=== PATIENT | male | born 1965 | race Caucasian/White ===

== ENCOUNTER 2018-12-02 16:08 | Inpatient (IN) | payer MEDICARE ==
[~2018-12-02] VITALS: Ht 162.6 cm; Wt 123.9 kg
[2018-12-02] MEDS ORDERED: IV NORMAL SALINE 1000ML BAG 1,000 ML IV SCH (16:27)
[2018-12-02 16:38] LABS: BASO # 0.1 x10^3/uL (0.0-0.2); BASO % 1 % (0-3); EOS # 0.3 x10^3/uL (0.0-0.7); EOS % 3 % (0-3); HEMATOCRIT 34.6 % (39.0-53.0); LYMPH # 1.5 x10^3/uL (1.0-4.8); LYMPH % 17 % (24-48); MEAN CORPUSCULAR HEMOGLOBIN 30 pg (25-35); MEAN CORPUSCULAR HGB CONC 35 g/dL (31-37); MEAN CORPUSCULAR VOLUME 85 fL (79-100); MONO # 0.7 x10^3/uL (0.0-1.1); MONO % 9 % (0-9); NEUT % 70 % (31-73); PLATELET COUNT 167 x10^3/uL (140-400); RED BLOOD COUNT 4.05 x10^6/uL (4.30-5.70); RED CELL DISTRIBUTION WIDTH 13.3 % (11.5-14.5); WHITE BLOOD COUNT 8.5 x10^3/uL (4.0-11.0)
[2018-12-02 16:46] LABS: CALCIUM 8.8 mg/dL (8.5-10.1); CREATININE 1.8 mg/dL (0.7-1.3); POTASSIUM 4.8 mmol/L (3.5-5.1)
[2018-12-02 16:50] LABS: PROTHROMBIN TIME PATIENT 11.8 SEC (11.7-14.0)
[2018-12-02 16:53] LABS: ALBUMIN 3.9 g/dL (3.4-5.0); ALBUMIN/GLOBULIN RATIO 1.1 (1.0-1.7); TOTAL BILIRUBIN 0.7 mg/dL (0.2-1.0); TOTAL PROTEIN 7.6 g/dL (6.4-8.2)
--- NOTE | 2018-12-02 17:00 | RAD ---
PORTABLE CHEST 1V History: Chest pain Comparison: None. Findings: Low lung volumes. Portal technique accentuates cardiac size. No consolidation or pleural effusion. Right lateral pleural thickening. Impression: 1. Low lung volumes. Electronically signed by: Faustino Chua DO (12/02/2018 4:57 PM) [facility]
--- NOTE | 2018-12-02 17:55 | PHYS DOC ---
Past Medical History Past Medical History: Anxiety, Depression, Diabetes-Type II, Hypertension, Other Additional Past Medical Histor: 'legally blind', compressed vert, LE swelling, neuropathy (SYL CHAWLA MD) Past Surgical History: Other Additional Past Surgical Histo: cataract,laser eye,blood drained from L eye, cyst removed (SYL CHAWLA MD) Alcohol Use: None Drug Use: None (SYL CHAWLA MD) Adult General Chief Complaint Chief Complaint: SUICDAL IDEATION HPI HPI Patient is a 53 year old male who presents by EMS with complaining of suicidal patient and chest pain and shortness of breath. Patient states he was suicidal and mixed ammonia and bleach at 0100 today drinking to himself this morning of solution made him nauseous and shortness of breath. Patient complaining of constant substernal chest pain as an sharp pain without radiation and rated his pain 9/10. Patient also complaining of cough and shortness of breath and dry cough. Patient states he had more than 20 episodes of vomiting but was able to tolerate his breakfast and lunch. Patient also complaining of not feeling good. Patient denies homicidal ideation and hallucination. Patient states he was admitted at [facility] with suicidal ideation previously. (SYL CHAWLA MD) Review of Systems Review of Systems Constitutional: Denies fever or chills [] Eyes: Denies change in visual acuity, redness, or eye pain [] HENT: Denies nasal congestion or sore throat [] Respiratory: Reports cough and shortness of breath Cardiovascular: No additional information not addressed in HPI [] GI: Denies abdominal pain, bloody stools or diarrhea, reports nausea and vomiting [] : Denies dysuria or hematuria [] Musculoskeletal: Denies back pain or joint pain [] Integument: Denies rash or skin lesions [] Neurologic: Denies headache, focal weakness or sensory changes [] Endocrine: Denies polyuria or polydipsia [] All other systems were reviewed and found to be within normal limits, except as documented in this note. (SYL CHAWLA MD) Current Medications Current Medications Current Medications Medications (Trade) Dose Ordered Sig/Jaspal Start Time Stop Time Status Last Admin Dose Admin Sodium Chloride 1,000 ml @ 1,000 mls/hr Q1H 12/02/18 16:27 12/02/18 17:26 DC 12/02/18 17:16 1,000 MLS/HR (HAILEY LEE MD) Allergies Allergies Allergies Coded Allergies Type Severity Reaction Last Updated Verified No Known Drug Allergies 12/02/18 No (HAILEY LEE MD) Physical Exam Physical Exam Constitutional: Well nourished, no acute distress, non-toxic appearance, patient looks very comfortable but rated his pain 9/10, patient does not have an y cough or shortness of breath. [] HENT: Normocephalic, atraumatic, bilateral external ears normal, oropharynx moist, no oral exudates, nose normal. [] Eyes: PERRLA, EOMI, conjunctiva normal, no discharge. [] Neck: Normal range of motion, no tenderness, supple, no stridor. [] Cardiovascular: Tachycardia, no murmur [] Lungs & Thorax: Bilateral breath sounds clear to auscultation [] Abdomen: Bowel sounds normal, soft, no tenderness, no masses, no pulsatile masses. [] Skin: Warm, dry, no erythema, no rash. [] Back: No tenderness, no CVA tenderness. [] Extremities: No tenderness, no cyanosis, no clubbing, ROM intact, no edema. [] Neurologic: Alert and oriented X 3, normal motor function, normal sensory function, no focal deficits noted. [] Psychologic: Affect anxious, suicidal ideation. (SYL CHAWLA MD) Current Patient Data Vital Signs Vital Signs Date Time Temp Pulse Resp B/P (MAP) Pulse Ox O2 Delivery O2 Flow Rate FiO2 12/02/18 17:30 100 23 192/91 (124) 97 Room Air 12/02/18 16:10 98.4 98.4 (HAILEY LEE MD) Lab Values Laboratory Tests Test 12/02/18 16:26 12/02/18 17:55 White Blood Count 8.5 x10^3/uL (4.0-11.0) Red Blood Count 4.05 x10^6/uL (4.30-5.70) L Hemoglobin 12.0 g/dL (13.0-17.5) L Hematocrit 34.6 % (39.0-53.0) L Mean Corpuscular Volume 85 fL (79-100) Mean Corpuscular Hemoglobin 30 pg (25-35) Mean Corpuscular Hemoglobin Concent 35 g/dL (31-37) Red Cell Distribution Width 13.3 % (11.5-14.5) Platelet Count 167 x10^3/uL (140-400) Neutrophils (%) (Auto) 70 % (31-73) Lymphocytes (%) (Auto) 17 % (24-48) L Monocytes (%) (Auto) 9 % (0-9) Eosinophils (%) (Auto) 3 % (0-3) Basophils (%) (Auto) 1 % (0-3) Neutrophils # (Auto) 6.0 x10^3/uL (1.8-7.7) Lymphocytes # (Auto) 1.5 x10^3/uL (1.0-4.8) Monocytes # (Auto) 0.7 x10^3/uL (0.0-1.1) Eosinophils # (Auto) 0.3 x10^3/uL (0.0-0.7) Basophils # (Auto) 0.1 x10^3/uL (0.0-0.2) Prothrombin Time 11.8 SEC (11.7-14.0) Prothrombin Time INR 0.9 (0.8-1.1) Sodium Level 141 mmol/L (136-145) Potassium Level 4.8 mmol/L (3.5-5.1) Chloride Level 103 mmol/L (98-107) Carbon Dioxide Level 28 mmol/L (21-32) Anion Gap 10 (6-14) Blood Urea Nitrogen 38 mg/dL (8-26) H Creatinine 1.8 mg/dL (0.7-1.3) H Estimated GFR (Cockcroft-Gault) 40.0 BUN/Creatinine Ratio 21 (6-20) H Glucose Level 293 mg/dL (70-99) H Calcium Level 8.8 mg/dL (8.5-10.1) Total Bilirubin 0.7 mg/dL (0.2-1.0) Aspartate Amino Transferase (AST) 14 U/L (15-37) L Alanine Aminotransferase (ALT) 16 U/L (16-63) Alkaline Phosphatase 90 U/L (46-116) Creatine Kinase 103 U/L (39-308) Troponin I Quantitative < 0.017 ng/mL (0.000-0.055) PY-Ofi-O-Type Natriuretic Peptide 125 pg/mL (0-124) H Total Protein 7.6 g/dL (6.4-8.2) Albumin 3.9 g/dL (3.4-5.0) Albumin/Globulin Ratio 1.1 (1.0-1.7) Ethyl Alcohol Level < 10 mg/dL (0-10) Urine Collection Type Unknown Urine Color Yellow Urine Clarity Clear Urine pH 5.5 Urine Specific [place] 1.020 Urine Protein 100 mg/dL (NEG-TRACE) Urine Glucose (UA) 250 mg/dL (NEG) Urine Ketones (Stick) Negative mg/dL (NEG) Urine Blood Moderate (NEG) Urine Nitrite Negative (NEG) Urine Bilirubin Negative (NEG) Urine Urobilinogen Dipstick 1.0 mg/dL (0.2 mg/dL) Urine Leukocyte Esterase Negative (NEG) Urine RBC 6-10 /HPF (0-2) Urine WBC Rare /HPF (0-4) Urine Bacteria 0 /HPF (0-FEW) Urine Hyaline Casts Few /HPF Urine Mucus Slight /LPF Urine Opiates Screen Neg (NEG) Urine Methadone Screen Neg (NEG) Urine Barbiturates Neg (NEG) Urine Phencyclidine Screen Neg (NEG) Urine Amphetamine/Methamphetamine Neg (NEG) Urine Benzodiazepines Screen Neg (NEG) Urine Cocaine Screen Neg (NEG) Urine Cannabinoids Screen Neg (NEG) Urine Ethyl Alcohol Neg (NEG) Laboratory Tests 12/02/18 16:26 Laboratory Tests 12/02/18 16:26 (HAILEY LEE MD) EKG EKG EKG interpreted by me. EKG at 1612 showed sinus tachycardia at rate of 111, left hernandez axis, poor R-wave progress in anteroseptal leads, no acute ST and T-wave abnormalities. (SYL CHAWLA MD) Radiology/Procedures Radiology/Procedures [][facility] [address] [place], [place] [id number] IMAGING REPORT Signed PATIENT: BERNABE GILL ACCOUNT: [id number] : 1965 LOCATION: ER AGE: 53 SEX: M EXAM STATUS: PRE ER ORD. PHYSICIAN: SYL CHAWLA MD REASON: chest pain PROCEDURE: PORTABLE CHEST 1V PORTABLE CHEST 1V History: Chest pain Comparison: None. Findings: Low lung volumes. Portal technique accentuates cardiac size. No consolidation or pleural effusion. Right lateral pleural thickening. Impression: 1. Low lung volumes. Electronically signed by: Faustino Chua DO (12/02/2018 4:57 PM) [facility] DICTATED and SIGNED BY: FAUSTINO CHUA DO DATE: 12/02/18 523 (SYL CHAWLA MD) Course & Med Decision Making Course & Med Decision Making Pertinent Labs and Imaging studies reviewed. (See chart for details) Evaluation of patient in ER showed 53-year-old male patient with history of d epression and anxiety who developed chest pain and shortness of breath after smelling the mixture of ammonia and bleach. Patient was very comfortable in ER without shortness of breath or nausea and vomiting but complaining of all of this problem. Patient had stable vital signs and labs except for elevation of blood sugar and chronic renal insufficiency. UA and UDS is pending. Patient was evaluated by PAT team staff and had criteria for inpatient treatment for suicidal ideation. Patient was medically cleared for transfer to psychiatric unit. Waiting for psychiatric placement. Sign out given to at 1800 for further evaluation and final disposition. Discussed current findings and plan with patient and family, who acknowledge understanding and agreement. (SYL CHAWLA MD) Course & Med Decision Making I spoke with Marco A from the PAT team [facility] recently only accepting psychiatric facility and they wanted him to be admitted for blood pressure and blood sugar stabilization. We'll admit to Dr. Brooks (HAILEY LEE MD) Joon Disclaimer Dragon Disclaimer This electronic medical record was generated, in whole or in part, using a voice recognition dictation system. (SYL CHAWLA MD) Departure Departure Impression: Primary Impression: Suicidal ideation Additional Impressions: Anxiety about health Non-cardiac chest pain Uncontrolled diabetes mellitus Renal insufficiency Legally blind Disposition: ADMITTED INPATIENT Admitting Physician: SG (HAILEY LEE MD) Condition: STABLE Referrals: NO PCP (PCP) The HEART Score for CP Pts HEART Score for Chest Pain: HEART Score for Chest Pain Response (Comments) Value History Slighlty/Non-Suspicious 0 ECG Nonspecific Repolarizatio 1 Age >45 - < 65 1 Risk Factors >3 Risk Factors or Hx CAD 2 Troponin < Normal Limit 0 Total 4 Risk Factors: Risk Factors: DM, Current or recent (<one month) smoker, HTN, HLP, family history of CAD, obesity. Risk Scores: Score 0 - 3: 2.5% MACE over next 6 weeks - Discharge Home Score 4 - 6: 20.3% MACE over next 6 weeks - Admit for Clinical Observation Score 7 - 10: 72.7% MACE over next 6 weeks - Early Invasive Strategies (SYL CHAWLA MD) Problem Qualifiers Additional Impressions: Uncontrolled diabetes mellitus Diabetes mellitus type: other specified (including MARIXA) Glycemic state: with hyperglycemia Qualified Codes: E13.65 - Other specified diabetes mellitus with hyperglycemia SYL CHAWLA MD Dec 02, 2018 17:55 HAILEY LEE MD Dec 02, 2018 19:43
[2018-12-02 18:05] LABS: BILIRUBIN,URINE NEGATIVE (NEG); CLARITY,URINE CLEAR; COLOR,URINE YELLOW; NITRITE,URINE NEGATIVE (NEG); PH,URINE 5.5; PROTEIN,URINE 100 mg/dL (NEG-TRACE)
[2018-12-02 18:12] LABS: BARBITURATES NEG (NEG); BENZODIAZEPINES NEG (NEG); CANNABINOIDS NEG (NEG); COCAINE NEG (NEG); METHADONE NEG (NEG); OPIATES NEG (NEG); PHENCYCLIDINE NEG (NEG)
[2018-12-02 18:16] LABS: BACTERIA,URINE 0 /HPF (0-FEW); WBC,URINE RARE /HPF (0-4)
[2018-12-02 18:17] LABS: HYALINE CASTS, URINE FEW /HPF
[2018-12-02 18:20] LABS: AMPHETAMINE/METHAMPHETAMINE NEG (NEG)
[2018-12-02] MEDS ORDERED: amLODIPine BESYLATE 5 MG TABLET PO ONE (20:00)
[2018-12-02 21:07] VITALS: BP 167/84
[2018-12-02] MEDS ORDERED: INSU100I27 SQ (21:15)
[2018-12-02] MEDS ORDERED: INSU100I17 SQ (21:15)
[2018-12-02] MEDS ORDERED: AMLO2.5T5 PO (21:15)
--- NOTE | 2018-12-02 22:50 | NUR ---
The patient, BERNABE GILL, 53 y/o, M admitted by KRISTAL VILLALBA MD, was given written information regarding hospital policies, unit procedures and contact persons. Patient arrived to room via ED bed, assisted by ED staff member. Valuables were checked, noted, and placed in the medication room. Clock, trash cans, and plastic bags were removed from the patient's room. Patient was given a boxed lunch and ice water per request. Patient states no other needs at this time. This RN will continue to monitor the patient at this time.
[2018-12-02 23:00] VITALS: BP 154/84
[2018-12-03 02:56] VITALS: BP 164/91
[2018-12-03 07:02] VITALS: BP 183/100
[2018-12-03 08:33] LABS: CALCIUM 8.6 mg/dL (8.5-10.1); CREATININE 1.2 mg/dL (0.7-1.3); GFR 63.8; POTASSIUM 4.6 mmol/L (3.5-5.1)
--- NOTE | 2018-12-03 10:56 | PDOC1 ---
History and Physical Date of Admission Date of Admission DATE: 12/03/18 TIME: 10:55 Identification/Chief Complaint Chief Complaint SEEN IN ER 53-year-old male patient with history of depression and anxiety who developed chest pain and shortness of breath after smelling a mixture of ammonia and bleach in an effort to harm himself 12/02 complaining of cough and shortness of breath and dry cough. states he had more than 20 episodes of vomiting but was able to tolerate his breakfast and lunch. Patient also complaining of not feeling well. denies homicidal ideation and hallucination. Patient states he was admitted at [facility] with suicidal ideation previously. States that life seems hopeless, he cannot drive or work due to blindness, his family has forsaken him x 5 yrs, He apparently had a hx of intentional overdose with insulin in 2017. He notes severe dysphoria, finds no pleasure in life, and" wishes to end it all "., has little or no money to spend, does not qualify for food stamps HAS 2 years of college education in [place], but no degree. 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 due to vision loss, is followed [facility] Past Medical History Past Medical History Past Medical History Past Medical History Past Medical History: Anxiety, Depression, Diabetes-Type II, Hypertension, Other Additional Past Medical Histor: 'legally blind', compressed vert, LE swelling, neuropathy Past Surgical History: Other Additional Past Surgical Histo: cataract,laser eye,blood drained from L eye, cyst removed Alcohol Use: None Drug Use: None Psych: Anxiety, Depression Endocrine: Diabetes Past Surgical History Past Surgical History: No pertinent history Family History Family History: High Cholestrol, Hypertension Family History: Parent, Other (father age 59 from [place]) Social History Smoke: No ALCOHOL: none Drugs: None Current Problem List Problem List Problems Medical Problems: (1) Anxiety about health Status: Acute (2) Legally blind Status: Acute (3) Non-cardiac chest pain Status: Acute (4) Renal insufficiency Status: Acute (5) Suicidal ideation Status: Acute (6) Uncontrolled diabetes mellitus Status: Acute Current Medications Current Medications Current Medications Sodium Chloride 1,000 ml @ 1,000 mls/hr Q1H IV Last administered on 12/02/18at 17:16; Start 12/02/18 at 16:27; Stop 12/02/18 at 17:26; Status DC Amlodipine Besylate (Norvasc) 5 mg 1X ONCE PO Last administered on 12/02/18at 20:04; Start 12/02/18 at 20:00; Stop 12/02/18 at 20:01; Status DC Active Scripts Active Reported Amlodipine Besylate 2.5 Mg Tablet 2.5 Mg PO DAILY Novolog Flexpen (Insulin Aspart) 100 Unit/1 Ml Insuln.pen 15 Unit SQ TIDAC Levemir Flextouch (Insulin Detemir) 100 Unit/1 Ml Insuln.pen 40 Unit SQ BID Allergies Allergies: Coded Allergies: No Known Drug Allergies (Unverified , 12/02/18) ROS Review of System Review of Systems Review of Systems Constitutional: Denies fever or chills [] Eyes: Denies change in visual acuity, redness, or eye pain [] HENT: Denies nasal congestion or sore throat [] Respiratory: Reports cough and shortness of breath Cardiovascular: No additional information not addressed in HPI [] GI: Denies abdominal pain, bloody stools or diarrhea, reports nausea and vomiting [] : Denies dysuria or hematuria [] Musculoskeletal: Denies back pain or joint pain [] Integument: Denies rash or skin lesions [] Neurologic: Denies headache, focal weakness or sensory changes [] Endocrine: Denies polyuria or polydipsia [] 14 pt systems were reviewed and found to be within normal limits, except as documented General: YES: Fatigue PSYCHOLOGICAL ROS: YES: Depression Eyes: Yes Decreased vision, Yes Loss of vision ALLERGY AND IMMUNOLOGY: No: Hives, Insect Bite Sensitivity, Itchy/Watery Eyes, Nasal Congestion, Post Nasal Drip, Seasonal Allergies, Other Hematological and Lymphatic: No: Bleeding Problems, Blood Clots, Blood Transfusions, Brusing, Night Sweats, Pallor, Swollen Lymph Nodes, Other Respiratory: YES: Cough; No: Hemoptysis, Orthopnea, Pleuritic Pain, Shortness of breath, SOB with excertion, Sputum Changes, Stridor, Tachypnea, Wheezing, Other Cardiovascular: yes Chest Pain Gastrointestinal: No Nausea, No Vomiting, No Abdominal Pain, No Diarrhea, No Constipation, No Melena, No Hematochezia, No Other Musculoskeletal: Yes Muscular Weakness Neurological: Yes Gait Disturbance Physical Exam Physical Exam Physical Exam Physical Exam Constitutional: Well nourished, no acute distress, non-toxic appearance, patient looks very comfortable but rated his pain 9/10, patient does not have any cough or shortness of breath. [] HENT: Normocephalic, atraumatic, bilateral external ears normal, oropharynx moist, no oral exudates, nose normal. [] Eyes: PERRLA, EOMI, conjunctiva normal, no discharge. [] Neck: Normal range of motion, no tenderness, supple, no stridor. [] Cardiovascular: Tachycardia, no murmur [] Lungs & Thorax: Bilateral breath sounds clear to auscultation [] Abdomen: Bowel sounds normal, soft, no tenderness, no masses, no pulsatile masses. [] Skin: Warm, dry, no erythema, no rash. [] Back: No tenderness, no CVA tenderness. [] Extremities: No tenderness, no cyanosis, no clubbing, ROM intact, no edema. [] Neurologic: Alert and oriented X 3, normal motor function, normal sensory function, no focal deficits noted. [] Psychologic: Affect anxious, suicidal ideation. DEPRESSED AFFECT General: Alert, Oriented X3, Cooperative, No acute distress, mild distress HEENT: Atraumatic, EOMI, Mucous membr. moist/pink Lungs: Clear to auscultation, Normal air movement Heart: RRR Abdomen: Normal bowel sounds, Soft Rectal Exam: not examined PELVIC: Examination not indicated Extremities: No cyanosis Skin: No breakdown, No significant lesion Neuro: Normal speech, Cranial nerves 3-12 NL Psych/Mental Status: Other (DEPRESSED AFFECT) Vitals Vitals Vital Signs Date Time Temp Pulse Resp B/P (MAP) Pulse Ox O2 Delivery O2 Flow Rate FiO2 12/03/18 07:02 98.4 94 18 183/100 (127) 98 Room Air 98.4 Labs Labs Laboratory Tests Test 12/02/18 16:26 12/02/18 17:55 12/02/18 20:33 12/03/18 07:07 White Blood Count 8.5 x10^3/uL (4.0-11.0) Red Blood Count 4.05 x10^6/uL (4.30-5.70) Hemoglobin 12.0 g/dL (13.0-17.5) Hematocrit 34.6 % (39.0-53.0) Mean Corpuscular Volume 85 fL (79-100) Mean Corpuscular Hemoglobin 30 pg (25-35) Mean Corpuscular Hemoglobin Concent 35 g/dL (31-37) Red Cell Distribution Width 13.3 % (11.5-14.5) Platelet Count 167 x10^3/uL (140-400) Neutrophils (%) (Auto) 70 % (31-73) Lymphocytes (%) (Auto) 17 % (24-48) Monocytes (%) (Auto) 9 % (0-9) Eosinophils (%) (Auto) 3 % (0-3) Basophils (%) (Auto) 1 % (0-3) Neutrophils # (Auto) 6.0 x10^3/uL (1.8-7.7) Lymphocytes # (Auto) 1.5 x10^3/uL (1.0-4.8) Monocytes # (Auto) 0.7 x10^3/uL (0.0-1.1) Eosinophils # (Auto) 0.3 x10^3/uL (0.0-0.7) Basophils # (Auto) 0.1 x10^3/uL (0.0-0.2) Prothrombin Time 11.8 SEC (11.7-14.0) Prothromb Time International Ratio 0.9 (0.8-1.1) Sodium Level 141 mmol/L (136-145) Potassium Level 4.8 mmol/L (3.5-5.1) Chloride Level 103 mmol/L (98-107) Carbon Dioxide Level 28 mmol/L (21-32) Anion Gap 10 (6-14) Blood Urea Nitrogen 38 mg/dL (8-26) Creatinine 1.8 mg/dL (0.7-1.3) Estimated GFR (Cockcroft-Gault) 40.0 BUN/Creatinine Ratio 21 (6-20) Glucose Level 293 mg/dL (70-99) Calcium Level 8.8 mg/dL (8.5-10.1) Total Bilirubin 0.7 mg/dL (0.2-1.0) Aspartate Amino Transf (AST/SGOT) 14 U/L (15-37) Alanine Aminotransferase (ALT/SGPT) 16 U/L (16-63) Alkaline Phosphatase 90 U/L (46-116) Creatine Kinase 103 U/L (39-308) Troponin I Quantitative < 0.017 ng/mL (0.000-0.055) MZ-Clw-W-Type Natriuretic Peptide 125 pg/mL (0-124) Total Protein 7.6 g/dL (6.4-8.2) Albumin 3.9 g/dL (3.4-5.0) Albumin/Globulin Ratio 1.1 (1.0-1.7) Ethyl Alcohol Level < 10 mg/dL (0-10) Urine Collection Type Unknown Urine Color Yellow Urine Clarity Clear Urine pH 5.5 Urine Specific [place] 1.020 Urine Protein 100 mg/dL (NEG-TRACE) Urine Glucose (UA) 250 mg/dL (NEG) Urine Ketones (Stick) Negative mg/dL (NEG) Urine Blood Moderate (NEG) Urine Nitrite Negative (NEG) Urine Bilirubin Negative (NEG) Urine Urobilinogen Dipstick 1.0 mg/dL (0.2 mg/dL) Urine Leukocyte Esterase Negative (NEG) Urine RBC 6-10 /HPF (0-2) Urine WBC Rare /HPF (0-4) Urine Bacteria 0 /HPF (0-FEW) Urine Hyaline Casts Few /HPF Urine Mucus Slight /LPF Urine Opiates Screen Neg (NEG) Urine Methadone Screen Neg (NEG) Urine Barbiturates Neg (NEG) Urine Phencyclidine Screen Neg (NEG) Urine Amphetamine/Methamphetamine Neg (NEG) Urine Benzodiazepines Screen Neg (NEG) Urine Cocaine Screen Neg (NEG) Urine Cannabinoids Screen Neg (NEG) Urine Ethyl Alcohol Neg (NEG) Glucose (Fingerstick) 221 mg/dL (70-99) 246 mg/dL (70-99) Test 12/03/18 07:45 Sodium Level 143 mmol/L (136-145) Potassium Level 4.6 mmol/L (3.5-5.1) Chloride Level 108 mmol/L (98-107) Carbon Dioxide Level 27 mmol/L (21-32) Anion Gap 8 (6-14) Blood Urea Nitrogen 29 mg/dL (8-26) Creatinine 1.2 mg/dL (0.7-1.3) Estimated GFR (Cockcroft-Gault) 63.8 Glucose Level 254 mg/dL (70-99) Calcium Level 8.6 mg/dL (8.5-10.1) Laboratory Tests Test 12/02/18 16:26 12/02/18 17:55 12/02/18 20:33 12/03/18 07:07 White Blood Count 8.5 x10^3/uL (4.0-11.0) Red Blood Count 4.05 x10^6/uL (4.30-5.70) Hemoglobin 12.0 g/dL (13.0-17.5) Hematocrit 34.6 % (39.0-53.0) Mean Corpuscular Volume 85 fL (79-100) Mean Corpuscular Hemoglobin 30 pg (25-35) Mean Corpuscular Hemoglobin Concent 35 g/dL (31-37) Red Cell Distribution Width 13.3 % (11.5-14.5) Platelet Count 167 x10^3/uL (140-400) Neutrophils (%) (Auto) 70 % (31-73) Lymphocytes (%) (Auto) 17 % (24-48) Monocytes (%) (Auto) 9 % (0-9) Eosinophils (%) (Auto) 3 % (0-3) Basophils (%) (Auto) 1 % (0-3) Neutrophils # (Auto) 6.0 x10^3/uL (1.8-7.7) Lymphocytes # (Auto) 1.5 x10^3/uL (1.0-4.8) Monocytes # (Auto) 0.7 x10^3/uL (0.0-1.1) Eosinophils # (Auto) 0.3 x10^3/uL (0.0-0.7) Basophils # (Auto) 0.1 x10^3/uL (0.0-0.2) Prothrombin Time 11.8 SEC (11.7-14.0) Prothromb Time International Ratio 0.9 (0.8-1.1) Sodium Level 141 mmol/L (136-145) Potassium Level 4.8 mmol/L (3.5-5.1) Chloride Level 103 mmol/L (98-107) Carbon Dioxide Level 28 mmol/L (21-32) Anion Gap 10 (6-14) Blood Urea Nitrogen 38 mg/dL (8-26) Creatinine 1.8 mg/dL (0.7-1.3) Estimated GFR (Cockcroft-Gault) 40.0 BUN/Creatinine Ratio 21 (6-20) Glucose Level 293 mg/dL (70-99) Calcium Level 8.8 mg/dL (8.5-10.1) Total Bilirubin 0.7 mg/dL (0.2-1.0) Aspartate Amino Transf (AST/SGOT) 14 U/L (15-37) Alanine Aminotransferase (ALT/SGPT) 16 U/L (16-63) Alkaline Phosphatase 90 U/L (46-116) Creatine Kinase 103 U/L (39-308) Troponin I Quantitative < 0.017 ng/mL (0.000-0.055) NB-Hpb-Y-Type Natriuretic Peptide 125 pg/mL (0-124) Total Protein 7.6 g/dL (6.4-8.2) Albumin 3.9 g/dL (3.4-5.0) Albumin/Globulin Ratio 1.1 (1.0-1.7) Ethyl Alcohol Level < 10 mg/dL (0-10) Urine Collection Type Unknown Urine Color Yellow Urine Clarity Clear Urine pH 5.5 Urine Specific [place] 1.020 Urine Protein 100 mg/dL (NEG-TRACE) Urine Glucose (UA) 250 mg/dL (NEG) Urine Ketones (Stick) Negative mg/dL (NEG) Urine Blood Moderate (NEG) Urine Nitrite Negative (NEG) Urine Bilirubin Negative (NEG) Urine Urobilinogen Dipstick 1.0 mg/dL (0.2 mg/dL) Urine Leukocyte Esterase Negative (NEG) Urine RBC 6-10 /HPF (0-2) Urine WBC Rare /HPF (0-4) Urine Bacteria 0 /HPF (0-FEW) Urine Hyaline Casts Few /HPF Urine Mucus Slight /LPF Urine Opiates Screen Neg (NEG) Urine Methadone Screen Neg (NEG) Urine Barbiturates Neg (NEG) Urine Phencyclidine Screen Neg (NEG) Urine Amphetamine/Methamphetamine Neg (NEG) Urine Benzodiazepines Screen Neg (NEG) Urine Cocaine Screen Neg (NEG) Urine Cannabinoids Screen Neg (NEG) Urine Ethyl Alcohol Neg (NEG) Glucose (Fingerstick) 221 mg/dL (70-99) 246 mg/dL (70-99) Test 12/03/18 07:45 Sodium Level 143 mmol/L (136-145) Potassium Level 4.6 mmol/L (3.5-5.1) Chloride Level 108 mmol/L (98-107) Carbon Dioxide Level 27 mmol/L (21-32) Anion Gap 8 (6-14) Blood Urea Nitrogen 29 mg/dL (8-26) Creatinine 1.2 mg/dL (0.7-1.3) Estimated GFR (Cockcroft-Gault) 63.8 Glucose Level 254 mg/dL (70-99) Calcium Level 8.6 mg/dL (8.5-10.1) VTE Prophylaxis Ordered VTE Prophylaxis Devices: Yes VTE Pharmacological Prophylaxi: Yes Assessment/Plan Assessment/Plan Impression: Suicidal ideation INTENTIONAL act of self harm 12/02 by inhalation of fumes morbid obesity CHEST DISCOMFORT inhalation toxicity Anxiety about health Non-cardiac chest pain Uncontrolled diabetes mellitus Renal insufficiency, SERA Legally blind 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
[2018-12-03 11:01] VITALS: BP 173/97
[2018-12-03] MEDS ORDERED: ALBUTEROL SULFATE 2.5 MG/3 ML NEBU. NEB PRN (11:15)
[2018-12-03] MEDS ORDERED: DOCUSATE SODIUM 100 MG CAPSULE. PO PRN (11:15)
[2018-12-03] MEDS ORDERED: LORazepam 0.5 MG TABLET PO PRN (11:15)
[2018-12-03] MEDS ORDERED: ONDANSETRON PF 4 MG/2 ML VIAL. IV PRN (11:15)
[2018-12-03] MEDS ORDERED: MAG HYDROX/ALUMINUM HYD/SIMETH 30 ML ORAL.SUSP PO PRN (11:15)
[2018-12-03] MEDS ORDERED: 0.9 % SODIUM CHLORIDE 10 ML DISP.SYRIN. IV PRN (11:15)
[2018-12-03] MEDS ORDERED: cloNIDine HCL 0.1 MG TABLET PO PRN (11:15)
--- NOTE | 2018-12-03 11:22 | EKG ---
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
[2018-12-03] MEDS: amLODIPine BESYLATE 5 MG TABLET PO SCH (12:09)
[2018-12-03] MEDS: ENOXAPARIN 40 MG/0.4 ML SYRINGE. SQ SCH (12:09)
[2018-12-03] MEDS: ACETAMINOPHEN 325 MG TABLET. PO PRN ×2 (12:09→18:25)
[2018-12-03] MEDS: INSULIN LISPRO 300 UNITS/3 ML VIAL. SQ SCH ×2 (12:16→17:29)
[2018-12-03] MEDS: FLUoxetine HCL 10 MG CAPSULE PO SCH (17:26)
[2018-12-03 18:03] VITALS: BP 138/75
[2018-12-03] MEDS ORDERED: DEXTROSE 50% 25 GM / 50ML DISP.SYRIN. IV ONE (20:28)
[2018-12-03] MEDS: DEXTROSE 50% 25 GM / 50ML DISP.SYRIN. IV PRN (20:38)
[2018-12-03] MEDS: INSULIN GLARGINE SYRINGE. SQ SCH (20:43)
[2018-12-03 23:00] VITALS: BP 113/75
[2018-12-04] VITALS (7 sets, daily range): BP systolic 122–169; BP diastolic 80–102
[2018-12-04 05:20] LABS: ALBUMIN 3.2 g/dL (3.4-5.0); CALCIUM 8.8 mg/dL (8.5-10.1); CREATININE 1.2 mg/dL (0.7-1.3); GFR 63.8; PHOSPHORUS 4.1 mg/dL (2.6-4.7); POTASSIUM 4.6 mmol/L (3.5-5.1)
[2018-12-04] MEDS: amLODIPine BESYLATE 5 MG TABLET PO SCH (08:15)
[2018-12-04] MEDS: INSULIN GLARGINE SYRINGE. SQ SCH ×2 (08:19→20:59)
[2018-12-04] MEDS: FLUoxetine HCL 10 MG CAPSULE PO SCH (08:20)
[2018-12-04] MEDS: INSULIN LISPRO 300 UNITS/3 ML VIAL. SQ SCH ×3 (08:46→17:57)
--- NOTE | 2018-12-04 09:05 | NUR ---
SW following pt for dc planning. Chart reviewed and discussed with RN. Pt has PMHx of depression, anxiety, and hx intentional overdose with insulin. Pt presented in the ER complaining chest pain and SOB after smelling a mixture of ammonia and bleach in an effort to harm himself. MARGARETH phoned PAT team for assessment and evaluation. PAT team will see pt today for assessment, evaluation and possible tx placement. MARGARETH will continue to follow.
--- NOTE | 2018-12-04 10:58 | PDOC ---
PROGRESS NOTES Chief Complaint Chief Complaint Identification/Chief Complaint Chief Complaint 53-year-old male patient with history of depression and anxiety who developed chest pain and shortness of breath after smelling a mixture of ammonia and bleach in an effort to harm himself 12/02 complaining of cough and shortness of breath and dry cough. states he had more than 20 episodes of vomiting but was able to tolerate his breakfast and lunch. Patient also complaining of not feeling well. denies homicidal ideation and hallucination. Patient states he was admitted at [facility] with suicidal ideation previously. States that life seems hopeless, he cannot drive or work due to blindness, his family has forsaken him x 5 yrs, He apparently had a hx of intentional overdose with insulin in 2017. He notes severe dysphoria, finds no pleasure in life, and" wishes to end it all "., has little or no money to spend, does not qualify for food stamps HAS 2 years of college education in [place], but no degree. 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 loss, is followed by [facility] History of Present Illness History of Present Illness VTE Prophylaxis Ordered VTE Prophylaxis Devices: Yes VTE Pharmacological Prophylaxi: Yes Assessment/Plan Suicidal ideation INTENTIONAL act of self harm 12/02 by inhalation of fumes morbid obesity CHEST DISCOMFORT inhalation toxicity Anxiety about health Non-cardiac chest pain Uncontrolled diabetes mellitus Renal insufficiency, SERA Legally blind MAJOR DEPRESSION ADMITTED suicide precautions accuchecks consult PAT TEAM, SEEN IN ER DVT PROPHYLAXIS SITTER/// MEDICALLY NECESSARY NEPHROLOGY CONSULT INSULIN ORDERED A1C TSH ECHO 6 SOUTH TELE Cardiology consult FLP 38 MIN PT EXAM, CHART REVIEW, > 50% OF TIME SPENT WITH EXAM, CHART REVIEW, PT CARE COORDINATION Vitals Vitals Vital Signs Date Time Temp Pulse Resp B/P (MAP) Pulse Ox O2 Delivery O2 Flow Rate FiO2 12/04/18 08:20 Room Air 12/04/18 08:15 92 161/95 12/04/18 07:10 16 95 12/03/18 23:00 97.8 97.8 Physical Exam General: Alert, Oriented X3, Cooperative, No acute distress, mild distress Heart: Regular rate, Normal S1 Lungs: Clear Abdomen: Normal bowel sounds, Soft Extremities: No cyanosis Skin: No breakdown, No significant lesion Labs LABS Laboratory Tests Test 12/03/18 12:02 12/03/18 17:24 12/03/18 20:25 12/03/18 20:45 Glucose (Fingerstick) 245 mg/dL (70-99) 94 mg/dL (70-99) 51 mg/dL (70-99) 103 mg/dL (70-99) Test 12/03/18 22:54 12/04/18 03:24 12/04/18 03:51 Glucose (Fingerstick) 138 mg/dL (70-99) 216 mg/dL (70-99) Sodium Level 143 mmol/L (136-145) Potassium Level 4.6 mmol/L (3.5-5.1) Chloride Level 106 mmol/L (98-107) Carbon Dioxide Level 28 mmol/L (21-32) Anion Gap 9 (6-14) Blood Urea Nitrogen 26 mg/dL (8-26) Creatinine 1.2 mg/dL (0.7-1.3) Estimated GFR (Cockcroft-Gault) 63.8 Glucose Level 217 mg/dL (70-99) Calcium Level 8.8 mg/dL (8.5-10.1) Phosphorus Level 4.1 mg/dL (2.6-4.7) Albumin 3.2 g/dL (3.4-5.0) Triglycerides Level 123 mg/dL (0-150) Cholesterol Level 164 mg/dL (0-200) LDL Cholesterol, Calculated 98 mg/dL (0-100) VLDL Cholesterol, Calculated 25 mg/dL (0-40) Non-HDL Cholesterol Calculated 123 mg/dL (0-129) HDL Cholesterol 41 mg/dL (40-60) Cholesterol/HDL Ratio 4.0 Assessment and Plan Assessmemt and Plan Problems Medical Problems: (1) Anxiety about health Status: Acute (2) Legally blind Status: Acute (3) Non-cardiac chest pain Status: Acute (4) Renal insufficiency Status: Acute (5) Suicidal ideation Status: Acute (6) Uncontrolled diabetes mellitus Status: Acute Comment Review of Relevant I have reviewed the following items peter (where applicable) has been applied. Labs Laboratory Tests Test 12/02/18 16:26 12/02/18 17:55 12/02/18 20:33 12/03/18 07:07 White Blood Count 8.5 x10^3/uL (4.0-11.0) Red Blood Count 4.05 x10^6/uL (4.30-5.70) Hemoglobin 12.0 g/dL (13.0-17.5) Hematocrit 34.6 % (39.0-53.0) Mean Corpuscular Volume 85 fL (79-100) Mean Corpuscular Hemoglobin 30 pg (25-35) Mean Corpuscular Hemoglobin Concent 35 g/dL (31-37) Red Cell Distribution Width 13.3 % (11.5-14.5) Platelet Count 167 x10^3/uL (140-400) Neutrophils (%) (Auto) 70 % (31-73) Lymphocytes (%) (Auto) 17 % (24-48) Monocytes (%) (Auto) 9 % (0-9) Eosinophils (%) (Auto) 3 % (0-3) Basophils (%) (Auto) 1 % (0-3) Neutrophils # (Auto) 6.0 x10^3/uL (1.8-7.7) Lymphocytes # (Auto) 1.5 x10^3/uL (1.0-4.8) Monocytes # (Auto) 0.7 x10^3/uL (0.0-1.1) Eosinophils # (Auto) 0.3 x10^3/uL (0.0-0.7) Basophils # (Auto) 0.1 x10^3/uL (0.0-0.2) Prothrombin Time 11.8 SEC (11.7-14.0) Prothromb Time International Ratio 0.9 (0.8-1.1) Sodium Level 141 mmol/L (136-145) Potassium Level 4.8 mmol/L (3.5-5.1) Chloride Level 103 mmol/L (98-107) Carbon Dioxide Level 28 mmol/L (21-32) Anion Gap 10 (6-14) Blood Urea Nitrogen 38 mg/dL (8-26) Creatinine 1.8 mg/dL (0.7-1.3) Estimated GFR (Cockcroft-Gault) 40.0 BUN/Creatinine Ratio 21 (6-20) Glucose Level 293 mg/dL (70-99) Calcium Level 8.8 mg/dL (8.5-10.1) Total Bilirubin 0.7 mg/dL (0.2-1.0) Aspartate Amino Transf (AST/SGOT) 14 U/L (15-37) Alanine Aminotransferase (ALT/SGPT) 16 U/L (16-63) Alkaline Phosphatase 90 U/L (46-116) Creatine Kinase 103 U/L (39-308) Troponin I Quantitative < 0.017 ng/mL (0.000-0.055) QZ-Rir-U-Type Natriuretic Peptide 125 pg/mL (0-124) Total Protein 7.6 g/dL (6.4-8.2) Albumin 3.9 g/dL (3.4-5.0) Albumin/Globulin Ratio 1.1 (1.0-1.7) Ethyl Alcohol Level < 10 mg/dL (0-10) Urine Collection Type Unknown Urine Color Yellow Urine Clarity Clear Urine pH 5.5 Urine Specific [place] 1.020 Urine Protein 100 mg/dL (NEG-TRACE) Urine Glucose (UA) 250 mg/dL (NEG) Urine Ketones (Stick) Negative mg/dL (NEG) Urine Blood Moderate (NEG) Urine Nitrite Negative (NEG) Urine Bilirubin Negative (NEG) Urine Urobilinogen Dipstick 1.0 mg/dL (0.2 mg/dL) Urine Leukocyte Esterase Negative (NEG) Urine RBC 6-10 /HPF (0-2) Urine WBC Rare /HPF (0-4) Urine Bacteria 0 /HPF (0-FEW) Urine Hyaline Casts Few /HPF Urine Mucus Slight /LPF Urine Opiates Screen Neg (NEG) Urine Methadone Screen Neg (NEG) Urine Barbiturates Neg (NEG) Urine Phencyclidine Screen Neg (NEG) Urine Amphetamine/Methamphetamine Neg (NEG) Urine Benzodiazepines Screen Neg (NEG) Urine Cocaine Screen Neg (NEG) Urine Cannabinoids Screen Neg (NEG) Urine Ethyl Alcohol Neg (NEG) Glucose (Fingerstick) 221 mg/dL (70-99) 246 mg/dL (70-99) Test 12/03/18 07:45 12/03/18 12:02 12/03/18 17:24 12/03/18 20:25 Sodium Level 143 mmol/L (136-145) Potassium Level 4.6 mmol/L (3.5-5.1) Chloride Level 108 mmol/L (98-107) Carbon Dioxide Level 27 mmol/L (21-32) Anion Gap 8 (6-14) Blood Urea Nitrogen 29 mg/dL (8-26) Creatinine 1.2 mg/dL (0.7-1.3) Estimated GFR (Cockcroft-Gault) 63.8 Glucose Level 254 mg/dL (70-99) Calcium Level 8.6 mg/dL (8.5-10.1) Iron Level 80 ug/dL (65-175) Total Iron Binding Capacity 281 ug/dL (250-450) Iron Saturation 28 % (15-34) Troponin I Quantitative < 0.017 ng/mL (0.000-0.055) Thyroid Stimulating Hormone (TSH) 1.130 uIU/mL (0.358-3.74) Glucose (Fingerstick) 245 mg/dL (70-99) 94 mg/dL (70-99) 51 mg/dL (70-99) Test 12/03/18 20:45 12/03/18 22:54 12/04/18 03:24 12/04/18 03:51 Glucose (Fingerstick) 103 mg/dL (70-99) 138 mg/dL (70-99) 216 mg/dL (70-99) Sodium Level 143 mmol/L (136-145) Potassium Level 4.6 mmol/L (3.5-5.1) Chloride Level 106 mmol/L (98-107) Carbon Dioxide Level 28 mmol/L (21-32) Anion Gap 9 (6-14) Blood Urea Nitrogen 26 mg/dL (8-26) Creatinine 1.2 mg/dL (0.7-1.3) Estimated GFR (Cockcroft-Gault) 63.8 Glucose Level 217 mg/dL (70-99) Calcium Level 8.8 mg/dL (8.5-10.1) Phosphorus Level 4.1 mg/dL (2.6-4.7) Albumin 3.2 g/dL (3.4-5.0) Triglycerides Level 123 mg/dL (0-150) Cholesterol Level 164 mg/dL (0-200) LDL Cholesterol, Calculated 98 mg/dL (0-100) VLDL Cholesterol, Calculated 25 mg/dL (0-40) Non-HDL Cholesterol Calculated 123 mg/dL (0-129) HDL Cholesterol 41 mg/dL (40-60) Cholesterol/HDL Ratio 4.0 Laboratory Tests Test 12/03/18 12:02 12/03/18 17:24 12/03/18 20:25 12/03/18 20:45 Glucose (Fingerstick) 245 mg/dL (70-99) 94 mg/dL (70-99) 51 mg/dL (70-99) 103 mg/dL (70-99) Test 12/03/18 22:54 12/04/18 03:24 12/04/18 03:51 Glucose (Fingerstick) 138 mg/dL (70-99) 216 mg/dL (70-99) Sodium Level 143 mmol/L (136-145) Potassium Level 4.6 mmol/L (3.5-5.1) Chloride Level 106 mmol/L (98-107) Carbon Dioxide Level 28 mmol/L (21-32) Anion Gap 9 (6-14) Blood Urea Nitrogen 26 mg/dL (8-26) Creatinine 1.2 mg/dL (0.7-1.3) Estimated GFR (Cockcroft-Gault) 63.8 Glucose Level 217 mg/dL (70-99) Calcium Level 8.8 mg/dL (8.5-10.1) Phosphorus Level 4.1 mg/dL (2.6-4.7) Albumin 3.2 g/dL (3.4-5.0) Triglycerides Level 123 mg/dL (0-150) Cholesterol Level 164 mg/dL (0-200) LDL Cholesterol, Calculated 98 mg/dL (0-100) VLDL Cholesterol, Calculated 25 mg/dL (0-40) Non-HDL Cholesterol Calculated 123 mg/dL (0-129) HDL Cholesterol 41 mg/dL (40-60) Cholesterol/HDL Ratio 4.0 Medications Current Medications Sodium Chloride 1,000 ml @ 1,000 mls/hr Q1H IV Last administered on 12/02/18at 17:16; Start 12/02/18 at 16:27; Stop 12/02/18 at 17:26; Status DC Amlodipine Besylate (Norvasc) 5 mg 1X ONCE PO Last administered on 12/02/18at 20:04; Start 12/02/18 at 20:00; Stop 12/02/18 at 20:01; Status DC Amlodipine Besylate (Norvasc) 2.5 mg DAILY PO Last administered on 12/04/18at 08:15; Start 12/03/18 at 12:00 Insulin Human Lispro (HumaLOG) 15 units TIDWMEALS SQ Last administered on 12/04/18 08:46; Start 12/03/18 at 12:00 Insulin Glargine (Lantus Syringe) 40 unit BID SQ Last administered on 12/04/18 08:19; Start 12/03/18 at 21:00 Sodium Chloride (Normal Saline Flush) 3 ml QSHIFT PRN IV AFTER MEDS AND BLOOD DRAWS; Start 12/03/18 at 11:15 Ondansetron HCl (Zofran) 4 mg PRN Q4HRS PRN IV NAUSEA/VOMITING Last adm inistered on 12/04/18 08:20; Start 12/03/18 at 11:15 Acetaminophen (Tylenol) 650 mg PRN Q4HRS PRN PO TEMP OVER 100.4F OR MILD PAIN Last administered on 12/03/18 18:25; Start 12/03/18 at 11:15 Al Hydroxide/Mg Hydroxide (Mylanta Plus Xs) 30 ml PRN DAILY PRN PO HEARTBURN / GAS; Start 12/03/18 at 11:15 Clonidine HCl (Catapres) 0.1 mg PRN Q6HRS PRN PO SBP>160 OR DBP>90; Start 12/03 at 11:15 Docusate Sodium (Colace) 100 mg PRN BID PRN PO CONSTIPATION; Start 12/03/18 at 11:15 Albuterol Sulfate (Ventolin Neb Soln) 2.5 mg PRN Q4HRS PRN NEB SHORTNESS OF BREATH; Start 12/03/18 at 11:15 Lorazepam (Ativan) 0.5 mg PRN Q4HRS PRN PO ANXIETY / AGITATION Last administered on 12/03/18at 18:25; Start 12/03/18 at 11:15 Lorazepam (Ativan Inj) 2 mg PRN Q4HRS PRN IV ANXIETY / AGITATION; Start 12/03/18 at 11:15 Enoxaparin Sodium (Lovenox 40mg Syringe) 40 mg Q24H SQ Last administered on 12/03/18at 12:09; Start 12/03/18 at 12:00 Fluoxetine HCl (PROzac) 10 mg DAILY PO Last administered on 12/04/18 08:20; Start 12/03/18 at 16:00 Dextrose (Dextrose 50%-Water Syringe) 25 gm STK-MED ONCE IV ; Start 12/03/18 at 20:28; Stop 12/03/18 at 20:29; Status DC Dextrose (Dextrose 50%-Water Syringe) 12.5 gm PRN Q15MIN PRN IV SEE COMMENTS Last administered on 12/03/18at 20:38; Start 12/03/18 at 20:45 Active Scripts Active Reported Amlodipine Besylate 2.5 Mg Tablet 2.5 Mg PO DAILY Novolog Flexpen (Insulin Aspart) 100 Unit/1 Ml Insuln.pen 15 Unit SQ TIDAC Levemir Flextouch (Insulin Detemir) 100 Unit/1 Ml Insuln.pen 40 Unit SQ BID Vitals/I & O Vital Sign - Last 24 Hours 12/03/18 12/03/18 12/03/18 12/03/18 11:01 12:09 14:56 18:03 Temp 98.8 97.7 98.8 97.7 Pulse 95 95 89 Resp 18 16 18 B/P (MAP) 173/97 (122) 173/97 138/75 (96) Pulse Ox 98 97 O2 Delivery Room Air Room Air Room Air 12/03/18 12/03/18 12/04/18 12/04/18 19:59 23:00 03:00 07:10 Temp 97.8 97.8 Pulse 85 82 92 Resp 16 14 16 B/P (MAP) 113/75 (88) 140/80 (100) 161/95 (117) Pulse Ox 94 96 95 O2 Delivery Room Air Room Air Room Air Room Air 12/04/18 12/04/18 08:15 08:20 Pulse 92 B/P (MAP) 161/95 O2 Delivery Room Air Intake and Output 12/03/18 12/03/18 12/04/18 14:59 22:59 06:59 Intake Total 960 ml 480 ml 300 ml Output Total 1275 ml 300 ml Balance -315 ml 180 ml 300 ml KRISTAL VILLALBA MD Dec 04, 2018 10:57
[2018-12-04] MEDS: ENOXAPARIN 40 MG/0.4 ML SYRINGE. SQ SCH (12:12)
--- NOTE | 2018-12-04 12:51 | PDOC2 ---
CARDIAC CONSULT DATE OF CONSULT Date of Consult DATE: 12/04/18 TIME: 12:48 REASON FOR CONSULT Reason for Consult: Chest discomfort REFERRING PHYSICIAN Referring Physician: Dr. Brooks SOURCE Source: Chart review, Patient HISTORY OF PRESENT ILLNESS HISTORY OF PRESENT ILLNESS This is a 53 yo male, with a history of multiple suicide attempts, who presented secondary to chest pain and shortness of breath following suicide attempt with ingestion of ammonia and bleach. Patient had been at nursing facility for long- term care for the last two weeks. Signed himself out of the facility on . Had been staying at a hotel in the meantime. On Tuesday, ingested mix of ammonia and bleach solution. He subsequently developed sharp/pulling pain in his central chest. Has had persistent cough since, which worsens his pain. Cough is productive of clear sputum. Feels slightly short of breath. No dizziness, diaphoresis, palpitations, or nausea/vomiting. Has been admitted to mental health facility multiple times previously with suicidal ideations, attempts. Is presently 1:1. PAST MEDICAL HISTORY Cardiovascular: HTN, Hyperlipidemia Psych: Anxiety, Depression Renal/: Chronic renal insuff Endocrine: Diabetes PAST SURGICAL HISTORY Past Surgical History: No pertinent history FAMILY HISTORY Family History: Diabetes, Heart Disease (father ) SOCIAL HISTORY Smoke: No ALCOHOL: none Drugs: None Lives: Homeless CURRENT MEDICATIONS CURRENT MEDICATIONS Current Medications Medications (Trade) Dose Ordered Sig/Jaspal Route PRN Reason Start Time Stop Time Status Last Admin Dose Admin Insulin Glargine (Lantus Syringe) 40 unit BID SQ 12/03/18 21:00 12/04/18 08:19 Fluoxetine HCl (PROzac) 10 mg DAILY PO 12/03/18 16:00 12/04/18 08:20 Dextrose (Dextrose 50%-Water Syringe) 12.5 gm PRN Q15MIN PRN IV SEE COMMENTS 12/03/18 20:45 12/03/18 20:38 ALLERGIES ALLERGIES: Coded Allergies: No Known Drug Allergies (Unverified , 12/02/18) ROS Review of System 14 point ROS conducted with pertinent positives noted above in HPI. PHYSICAL EXAM General: Alert, Oriented X3, Cooperative, No acute distress HEENT: Atraumatic Lungs: Clear to auscultation, Normal air movement Heart: Regular rate, Normal S1, Normal S2 Abdomen: Soft, No tenderness Extremities: No edema, Normal pulses Skin: No significant lesion Neuro: Normal speech, Sensation intact Psych/Mental Status: Other (flat affect ) MUSCULOSKELETAL: No deformity VITALS/I&O VITALS/I&O: Vital Signs Date Time Temp Pulse Resp B/P (MAP) Pulse Ox O2 Delivery O2 Flow Rate FiO2 12/04/18 11:05 98.2 95 16 149/96 (113) 96 Room Air 98.2 I & O 12/03/18 12/03/18 12/04/18 15:00 23:00 07:00 Intake Total 960 ml 480 ml 300 ml Output Total 1275 ml 300 ml Balance -315 ml 180 ml 300 ml LABS Lab: Laboratory Tests Test 12/03/18 17:24 12/03/18 20:25 12/03/18 20:45 12/03/18 22:54 Glucose (Fingerstick) 94 mg/dL (70-99) 51 mg/dL (70-99) L 103 mg/dL (70-99) H 138 mg/dL (70-99) H Test 12/04/18 03:24 12/04/18 03:51 Sodium Level 143 mmol/L (136-145) Potassium Level 4.6 mmol/L (3.5-5.1) Chloride Level 106 mmol/L (98-107) Carbon Dioxide Level 28 mmol/L (21-32) Anion Gap 9 (6-14) Blood Urea Nitrogen 26 mg/dL (8-26) Creatinine 1.2 mg/dL (0.7-1.3) Estimated GFR (Cockcroft-Gault) 63.8 Glucose Level 217 mg/dL (70-99) H Calcium Level 8.8 mg/dL (8.5-10.1) Phosphorus Level 4.1 mg/dL (2.6-4.7) Albumin 3.2 g/dL (3.4-5.0) L Triglycerides Level 123 mg/dL (0-150) Cholesterol Level 164 mg/dL (0-200) LDL Cholesterol, Calculated 98 mg/dL (0-100) VLDL Cholesterol, Calculated 25 mg/dL (0-40) Non-HDL Cholesterol Calculated 123 mg/dL (0-129) HDL Cholesterol 41 mg/dL (40-60) Cholesterol/HDL Ratio 4.0 Glucose (Fingerstick) 216 mg/dL (70-99) H Laboratory Tests 12/04/18 03:24 ASSESSMENT/PLAN ASSESSMENT/PLAN 1. Chest pain, atypical. AMI ruled out. Most probably pleuritic in nature 2. Suicidal ideation, attempt. Ingested mix of ammonia and bleach. PAT team following 3. Accelerated hypertension; better controlled, but intermittent elevated 4. Hyperlipidemia: LDL 98 5. Diabetes, II 6. Depression, anxiety Recommendations Echo to assess LV systolic function Increase Norvasc No BB with severe depression, suicidal ideations Supportive care. \ If Echo WNL, may discharge from a CV standpoint. KAN DASILVA APRN Dec 04, 2018 12:51
[2018-12-04] MEDS ORDERED: amLODIPine BESYLATE 5 MG TABLET PO ONE (14:00)
[2018-12-04] MEDS: DEXTROSE 50% 25 GM / 50ML DISP.SYRIN. IV PRN (15:06)
--- NOTE | 2018-12-04 16:12 | NUR ---
SW following pt. Pt seen by PAT team and referral was sent to [facility]. Acceptance pending. Pt apparently was a nursing facility in [place] but left AMA after recently relocating from [place]. CM department notified to check insurance status due to NH admission. Per RN, Cardiology will clear pt pending echo results. Left a VM to [facility] admin, phone: [phone] and provided RN's number to call. Will continue to follow
[2018-12-05 03:00] VITALS: BP 155/102
[2018-12-05 03:57] LABS: BASO # 0.1 x10^3/uL (0.0-0.2); BASO % 1 % (0-3); EOS # 0.3 x10^3/uL (0.0-0.7); EOS % 6 % (0-3); HEMATOCRIT 31.5 % (39.0-53.0); HEMOGLOBIN 10.9 g/dL (13.0-17.5); LYMPH # 1.5 x10^3/uL (1.0-4.8); LYMPH % 26 % (24-48); MEAN CORPUSCULAR HEMOGLOBIN 30 pg (25-35); MEAN CORPUSCULAR HGB CONC 35 g/dL (31-37); MEAN CORPUSCULAR VOLUME 85 fL (79-100); MONO # 0.6 x10^3/uL (0.0-1.1); MONO % 10 % (0-9); NEUT # 3.5 x10^3/uL (1.8-7.7); NEUT % 58 % (31-73); PLATELET COUNT 149 x10^3/uL (140-400); RED BLOOD COUNT 3.69 x10^6/uL (4.30-5.70); RED CELL DISTRIBUTION WIDTH 13.1 % (11.5-14.5); WHITE BLOOD COUNT 5.9 x10^3/uL (4.0-11.0)
[2018-12-05 04:25] LABS: ALBUMIN 3.2 g/dL (3.4-5.0); ALBUMIN/GLOBULIN RATIO 0.9 (1.0-1.7); CALCIUM 8.8 mg/dL (8.5-10.1); CREATININE 1.3 mg/dL (0.7-1.3); GFR 58.2; POTASSIUM 4.6 mmol/L (3.5-5.1); TOTAL BILIRUBIN 0.4 mg/dL (0.2-1.0); TOTAL PROTEIN 6.7 g/dL (6.4-8.2)
[2018-12-05 06:11] LABS: HEMOGLOBIN A1C 8.3 % (4.8-5.6)
[2018-12-05 07:00] VITALS: BP 146/96
--- NOTE | 2018-12-05 07:55 | PDOC ---
PROGRESS NOTES Chief Complaint Chief Complaint Identification/Chief Complaint Chief Complaint 53-year-old male patient with history of depression and anxiety who developed chest pain and shortness of breath after smelling a mixture of ammonia and bleach in an effort to harm himself 12/02 complaining of cough and shortness of breath and dry cough. states he had more than 20 episodes of vomiting but was able to tolerate his breakfast and lunch. Patient also complaining of not feeling well. denies homicidal ideation and hallucination. Patient states he was admitted at [facility] with suicidal ideation previously. States that life seems hopeless, he cannot drive or work due to blindness, his family has forsaken him x 5 yrs, He apparently had a hx of intentional overdose with insulin in 2017. He notes severe dysphoria, finds no pleasure in life, and" wishes to end it all "., has little or no money to spend, does not qualify for food stamps HAS 2 years of college education in [place], but no degree. 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, but now disabled due to vision loss, is followed by [facility] History of Present Illness History of Present Illness VTE Prophylaxis Ordered VTE Prophylaxis Devices: Yes VTE Pharmacological Prophylaxi: Yes Assessment/Plan Suicidal ideation INTENTIONAL act of self harm 12/02 by inhalation of fumes morbid obesity CHEST DISCOMFORT inhalation toxicity Anxiety about health Non-cardiac chest pain HYPERTENSION, UNCONTROLLED Uncontrolled diabetes mellitus A1C =8.7 Renal insufficiency, SERA Legally blind MAJOR DEPRESSION ADMITTED suicide precautions accuchecks consult PAT TEAM, SEEN IN ER DVT PROPHYLAXIS SITTER/// MEDICALLY NECESSARY NEPHROLOGY CONSULT INSULIN ORDERED A1C TSH ECHO///Echocardiogram pending. 6 [facility] Cardiology FOLLOWING [facility] PENDING BEGIN LISINOPRIL 2.5 MG PO BID 36 MIN PT EXAM, CHART REVIEW, > 50% OF TIME SPENT WITH EXAM, CHART REVIEW, PT CARE COORDINATION Vitals Vitals Vital Signs Date Time Temp Pulse Resp B/P (MAP) Pulse Ox O2 Delivery O2 Flow Rate FiO2 12/05/18 07:00 98.3 86 19 146/96 (113) 97 Room Air 98.3 Physical Exam General: Alert, Oriented X3, Cooperative, No acute distress Heart: Regular rate, Normal S1 Lungs: Clear Abdomen: Soft, No tenderness Extremities: No edema, Normal pulses Skin: No significant lesion Labs LABS Laboratory Tests Test 12/04/18 08:10 12/04/18 10:59 12/04/18 15:01 12/04/18 15:22 Glucose (Fingerstick) 233 mg/dL (70-99) 121 mg/dL (70-99) 43 mg/dL (70-99) 150 mg/dL (70-99) Test 12/04/18 17:04 12/04/18 20:50 12/05/18 03:00 Glucose (Fingerstick) 197 mg/dL (70-99) 299 mg/dL (70-99) White Blood Count 5.9 x10^3/uL (4.0-11.0) Red Blood Count 3.69 x10^6/uL (4.30-5.70) Hemoglobin 10.9 g/dL (13.0-17.5) Hematocrit 31.5 % (39.0-53.0) Mean Corpuscular Volume 85 fL (79-100) Mean Corpuscular Hemoglobin 30 pg (25-35) Mean Corpuscular Hemoglobin Concent 35 g/dL (31-37) Red Cell Distribution Width 13.1 % (11.5-14.5) Platelet Count 149 x10^3/uL (140-400) Neutrophils (%) (Auto) 58 % (31-73) Lymphocytes (%) (Auto) 26 % (24-48) Monocytes (%) (Auto) 10 % (0-9) Eosinophils (%) (Auto) 6 % (0-3) Basophils (%) (Auto) 1 % (0-3) Neutrophils # (Auto) 3.5 x10^3/uL (1.8-7.7) Lymphocytes # (Auto) 1.5 x10^3/uL (1.0-4.8) Monocytes # (Auto) 0.6 x10^3/uL (0.0-1.1) Eosinophils # (Auto) 0.3 x10^3/uL (0.0-0.7) Basophils # (Auto) 0.1 x10^3/uL (0.0-0.2) Sodium Level 145 mmol/L (136-145) Potassium Level 4.6 mmol/L (3.5-5.1) Chloride Level 108 mmol/L (98-107) Carbon Dioxide Level 31 mmol/L (21-32) Anion Gap 6 (6-14) Blood Urea Nitrogen 24 mg/dL (8-26) Creatinine 1.3 mg/dL (0.7-1.3) Estimated GFR (Cockcroft-Gault) 58.2 BUN/Creatinine Ratio 18 (6-20) Glucose Level 116 mg/dL (70-99) Calcium Level 8.8 mg/dL (8.5-10.1) Total Bilirubin 0.4 mg/dL (0.2-1.0) Aspartate Amino Transf (AST/SGOT) 11 U/L (15-37) Alanine Aminotransferase (ALT/SGPT) 13 U/L (16-63) Alkaline Phosphatase 64 U/L (46-116) Total Protein 6.7 g/dL (6.4-8.2) Albumin 3.2 g/dL (3.4-5.0) Albumin/Globulin Ratio 0.9 (1.0-1.7) Assessment and Plan Assessmemt and Plan Problems Medical Problems: (1) Anxiety about health Status: Acute (2) Legally blind Status: Acute (3) Non-cardiac chest pain Status: Acute (4) Renal insufficiency Status: Acute (5) Suicidal ideation Status: Acute (6) Uncontrolled diabetes mellitus Status: Acute Comment Review of Relevant I have reviewed the following items peter (where applicable) has been applied. Labs Laboratory Tests Test 12/03/18 12:02 12/03/18 17:24 12/03/18 20:25 12/03/18 20:45 Glucose (Fingerstick) 245 mg/dL (70-99) 94 mg/dL (70-99) 51 mg/dL (70-99) 103 mg/dL (70-99) Test 12/03/18 22:54 12/04/18 03:24 12/04/18 03:51 12/04/18 08:10 Glucose (Fingerstick) 138 mg/dL (70-99) 216 mg/dL (70-99) 233 mg/dL (70-99) Sodium Level 143 mmol/L (136-145) Potassium Level 4.6 mmol/L (3.5-5.1) Chloride Level 106 mmol/L (98-107) Carbon Dioxide Level 28 mmol/L (21-32) Anion Gap 9 (6-14) Blood Urea Nitrogen 26 mg/dL (8-26) Creatinine 1.2 mg/dL (0.7-1.3) Estimated GFR (Cockcroft-Gault) 63.8 Glucose Level 217 mg/dL (70-99) Calcium Level 8.8 mg/dL (8.5-10.1) Phosphorus Level 4.1 mg/dL (2.6-4.7) Albumin 3.2 g/dL (3.4-5.0) Triglycerides Level 123 mg/dL (0-150) Cholesterol Level 164 mg/dL (0-200) LDL Cholesterol, Calculated 98 mg/dL (0-100) VLDL Cholesterol, Calculated 25 mg/dL (0-40) Non-HDL Cholesterol Calculated 123 mg/dL (0-129) HDL Cholesterol 41 mg/dL (40-60) Cholesterol/HDL Ratio 4.0 Test 12/04/18 10:59 12/04/18 15:01 12/04/18 15:22 12/04/18 17:04 Glucose (Fingerstick) 121 mg/dL (70-99) 43 mg/dL (70-99) 150 mg/dL (70-99) 197 mg/dL (70-99) Test 12/04/18 20:50 12/05/18 03:00 Glucose (Fingerstick) 299 mg/dL (70-99) White Blood Count 5.9 x10^3/uL (4.0-11.0) Red Blood Count 3.69 x10^6/uL (4.30-5.70) Hemoglobin 10.9 g/dL (13.0-17.5) Hematocrit 31.5 % (39.0-53.0) Mean Corpuscular Volume 85 fL (79-100) Mean Corpuscular Hemoglobin 30 pg (25-35) Mean Corpuscular Hemoglobin Concent 35 g/dL (31-37) Red Cell Distribution Width 13.1 % (11.5-14.5) Platelet Count 149 x10^3/uL (140-400) Neutrophils (%) (Auto) 58 % (31-73) Lymphocytes (%) (Auto) 26 % (24-48) Monocytes (%) (Auto) 10 % (0-9) Eosinophils (%) (Auto) 6 % (0-3) Basophils (%) (Auto) 1 % (0-3) Neutrophils # (Auto) 3.5 x10^3/uL (1.8-7.7) Lymphocytes # (Auto) 1.5 x10^3/uL (1.0-4.8) Monocytes # (Auto) 0.6 x10^3/uL (0.0-1.1) Eosinophils # (Auto) 0.3 x10^3/uL (0.0-0.7) Basophils # (Auto) 0.1 x10^3/uL (0.0-0.2) Sodium Level 145 mmol/L (136-145) Potassium Level 4.6 mmol/L (3.5-5.1) Chloride Level 108 mmol/L (98-107) Carbon Dioxide Level 31 mmol/L (21-32) Anion Gap 6 (6-14) Blood Urea Nitrogen 24 mg/dL (8-26) Creatinine 1.3 mg/dL (0.7-1.3) Estimated GFR (Cockcroft-Gault) 58.2 BUN/Creatinine Ratio 18 (6-20) Glucose Level 116 mg/dL (70-99) Calcium Level 8.8 mg/dL (8.5-10.1) Total Bilirubin 0.4 mg/dL (0.2-1.0) Aspartate Amino Transf (AST/SGOT) 11 U/L (15-37) Alanine Aminotransferase (ALT/SGPT) 13 U/L (16-63) Alkaline Phosphatase 64 U/L (46-116) Total Protein 6.7 g/dL (6.4-8.2) Albumin 3.2 g/dL (3.4-5.0) Albumin/Globulin Ratio 0.9 (1.0-1.7) Laboratory Tests Test 12/04/18 08:10 12/04/18 10:59 12/04/18 15:01 12/04/18 15:22 Glucose (Fingerstick) 233 mg/dL (70-99) 121 mg/dL (70-99) 43 mg/dL (70-99) 150 mg/dL (70-99) Test 12/04/18 17:04 12/04/18 20:50 12/05/18 03:00 Glucose (Fingerstick) 197 mg/dL (70-99) 299 mg/dL (70-99) White Blood Count 5.9 x10^3/uL (4.0-11.0) Red Blood Count 3.69 x10^6/uL (4.30-5.70) Hemoglobin 10.9 g/dL (13.0-17.5) Hematocrit 31.5 % (39.0-53.0) Mean Corpuscular Volume 85 fL (79-100) Mean Corpuscular Hemoglobin 30 pg (25-35) Mean Corpuscular Hemoglobin Concent 35 g/dL (31-37) Red Cell Distribution Width 13.1 % (11.5-14.5) Platelet Count 149 x10^3/uL (140-400) Neutrophils (%) (Auto) 58 % (31-73) Lymphocytes (%) (Auto) 26 % (24-48) Monocytes (%) (Auto) 10 % (0-9) Eosinophils (%) (Auto) 6 % (0-3) Basophils (%) (Auto) 1 % (0-3) Neutrophils # (Auto) 3.5 x10^3/uL (1.8-7.7) Lymphocytes # (Auto) 1.5 x10^3/uL (1.0-4.8) Monocytes # (Auto) 0.6 x10^3/uL (0.0-1.1) Eosinophils # (Auto) 0.3 x10^3/uL (0.0-0.7) Basophils # (Auto) 0.1 x10^3/uL (0.0-0.2) Sodium Level 145 mmol/L (136-145) Potassium Level 4.6 mmol/L (3.5-5.1) Chloride Level 108 mmol/L (98-107) Carbon Dioxide Level 31 mmol/L (21-32) Anion Gap 6 (6-14) Blood Urea Nitrogen 24 mg/dL (8-26) Creatinine 1.3 mg/dL (0.7-1.3) Estimated GFR (Cockcroft-Gault) 58.2 BUN/Creatinine Ratio 18 (6-20) Glucose Level 116 mg/dL (70-99) Calcium Level 8.8 mg/dL (8.5-10.1) Total Bilirubin 0.4 mg/dL (0.2-1.0) Aspartate Amino Transf (AST/SGOT) 11 U/L (15-37) Alanine Aminotransferase (ALT/SGPT) 13 U/L (16-63) Alkaline Phosphatase 64 U/L (46-116) Total Protein 6.7 g/dL (6.4-8.2) Albumin 3.2 g/dL (3.4-5.0) Albumin/Globulin Ratio 0.9 (1.0-1.7) Medications Current Medications Sodium Chloride 1,000 ml @ 1,000 mls/hr Q1H IV Last administered on 12/02/18 17:16; Start 12/02/18 at 16:27; Stop 12/02/18 at 17:26; Status DC Amlodipine Besylate (Norvasc) 5 mg 1X ONCE PO Last administered on 12/02/18 20:04; Start 12/02/18 at 20:00; Stop 12/02/18 at 20:01; Status DC Amlodipine Besylate (Norvasc) 2.5 mg DAILY PO Last administered on 12/04/18 08:15; Start 12/03/18 at 12:00; Stop 12/04/18 at 13:28; Status DC Insulin Human Lispro (HumaLOG) 15 units TIDWMEALS SQ Last administered on 12/04/18 17:57; Start 12/03/18 at 12:00 Insulin Glargine (Lantus Syringe) 40 unit BID SQ Last administered on 12/04/18 20:59; Start 12/03/18 at 21:00 Sodium Chloride (Normal Saline Flush) 3 ml QSHIFT PRN IV AFTER MEDS AND BLOOD DRAWS; Start 12/03/18 at 11:15 Ondansetron HCl (Zofran) 4 mg PRN Q4HRS PRN IV NAUSEA/VOMITING Last adminis tered on 12/04/18 08:20; Start 12/03/18 at 11:15 Acetaminophen (Tylenol) 650 mg PRN Q4HRS PRN PO TEMP OVER 100.4F OR MILD PAIN Last administered on 12/03/18 18:25; Start 12/03/18 at 11:15 Al Hydroxide/Mg Hydroxide (Mylanta Plus Xs) 30 ml PRN DAILY PRN PO HEARTBURN / GAS; Start 12/03/18 at 11:15 Clonidine HCl (Catapres) 0.1 mg PRN Q6HRS PRN PO SBP>160 OR DBP>90; Start 12/03/18 at 11:15 Docusate Sodium (Colace) 100 mg PRN BID PRN PO CONSTIPATION; Start 12/03/18 at 11:15 Albuterol Sulfate (Ventolin Neb Soln) 2.5 mg PRN Q4HRS PRN NEB SHORTNESS OF BREATH; Start 12/03/18 at 11:15 Lorazepam (Ativan) 0.5 mg PRN Q4HRS PRN PO ANXIETY / AGITATION Last administered on 12/03/18at 18:25; Start 12/03/18 at 11:15 Lorazepam (Ativan Inj) 2 mg PRN Q4HRS PRN IV ANXIETY / AGITATION; Start 12/03/18 at 11:15 Enoxaparin Sodium (Lovenox 40mg Syringe) 40 mg Q24H SQ Last administered on 12/04/18at 12:12; Start 12/03/18 at 12:00 Fluoxetine HCl (PROzac) 10 mg DAILY PO Last administered on 12/04/18at 08:20; Start 12/03/18 at 16:00 Dextrose (Dextrose 50%-Water Syringe) 25 gm STK-MED ONCE IV ; Start 12/03/18 at 20:28; Stop 12/03/18 at 20:29; Status DC Dextrose (Dextrose 50%-Water Syringe) 12.5 gm PRN Q15MIN PRN IV SEE COMMENTS Last administered on 12/04/18at 15:06; Start 12/03/18 at 20:45 Amlodipine Besylate (Norvasc) 5 mg DAILY PO ; Start 12/05/18 at 09:00 Amlodipine Besylate (Norvasc) 2.5 mg 1X ONCE PO Last administered on 12/04/18at 14:27; Start 12/04/18 at 14:00; Stop 12/04/18 at 14:01; Status DC Active Scripts Active Reported Amlodipine Besylate 2.5 Mg Tablet 2.5 Mg PO DAILY Novolog Flexpen (Insulin Aspart) 100 Unit/1 Ml Insuln.pen 15 Unit SQ TIDAC Levemir Flextouch (Insulin Detemir) 100 Unit/1 Ml Insuln.pen 40 Unit SQ BID Vitals/I & O Vital Sign - Last 24 Hours 12/04/18 12/04/18 12/04/18 12/04/18 08:15 08:20 11:05 14:27 Temp 98.2 98.2 Pulse 92 95 95 Resp 16 B/P (MAP) 161/95 149/96 (113) 149/96 Pulse Ox 96 O2 Delivery Room Air Room Air 12/04/18 12/04/18 12/04/18 12/04/18 15:04 19:00 19:25 20:00 Temp 98.4 98.0 98.4 98.0 Pulse 85 90 85 Resp 16 16 B/P (MAP) 122/94 (103) 169/102 (124) 145/86 (105) Pulse Ox 94 94 O2 Delivery Room Air Room Air Room Air 12/04/18 12/05/18 12/05/18 22:50 03:00 07:00 Temp 97.5 98.3 97.5 98.3 Pulse 85 88 86 Resp 18 16 19 B/P (MAP) 150/96 (114) 155/102 (119) 146/96 (113) Pulse Ox 96 95 97 O2 Delivery Room Air Room Air Room Air Intake and Output 12/04/18 12/04/18 12/05/18 15:00 23:00 07:00 Intake Total 480 ml 120 ml 0 ml Output Total 280 ml 150 ml Balance 200 ml -30 ml 0 ml KRISTAL VILLALBA MD Dec 05, 2018 07:55
[2018-12-05] MEDS: INSULIN LISPRO 300 UNITS/3 ML VIAL. SQ SCH ×3 (08:00→17:00)
[2018-12-05] MEDS: FLUoxetine HCL 10 MG CAPSULE PO SCH (08:21)
[2018-12-05] MEDS: amLODIPine BESYLATE 10 MG TABLET PO SCH (08:22)
[2018-12-05] MEDS: INSULIN GLARGINE SYRINGE. SQ SCH ×2 (08:25→21:34)
--- NOTE | 2018-12-05 08:59 | NUR ---
SW following pt. Chart reviewed and discussed with RN. Pt has had elevated BP during the night and echo is still pending. SW spoke with Pema at [facility], phone: [phone], fax: [phone] and they will not evaluate/accept pt until he is medically cleared. Plan 1. Per RN, will be doing medication adjustment today for elevated BP and await cardiology rounds. 2. SW will await for pt to be medically cleared before initiating inpt. psych placement. 3. Discussed with Marco A from PAT team.
[2018-12-05] MEDS ORDERED: amLODIPine BESYLATE 5 MG TABLET PO SCH (09:00)
[2018-12-05 11:00] VITALS: BP 138/98
[2018-12-05] MEDS ORDERED: LISINOPRIL 5 MG TABLET. PO SCH ×2 (11:30→21:00)
[2018-12-05] MEDS: ENOXAPARIN 40 MG/0.4 ML SYRINGE. SQ SCH (12:00)
[2018-12-05 14:34] VITALS: BP 152/105
--- NOTE | 2018-12-05 16:42 | CARD ---
MR#: [id number] Date of Study: 12/05/2018 Ordering Physician: KRISTAL VILLALBA, Referring Physician: KRISTAL VILLALBA, Tech: Laura Loja APPROVED REPORT EXAM: Two-dimensional and M-mode echocardiogram with Doppler and color Doppler. Other Information Quality : AverageHR: 90bpm INDICATION Dyspnea Chest Pain RISK FACTORS Hypertension Diabetes 2D DIMENSIONS RVDd3.2 (2.9-3.5cm)Left Atrium(2D)3.5 (1.6-4.0cm) IVSd0.9 (0.7-1.1cm)Aortic Root(2D)2.5 (2.0-3.7cm) LVDd5.0 (3.9-5.9cm)LVOT Diameter1.9 (1.8-2.4cm) PWd0.9 (0.7-1.1cm)LVDs2.7 (2.5-4.0cm) FS (%) 46.1 %SV91.2 ml LVEF(%)77.2 (>50%) Aortic Valve AoV Peak Mir.156.9cm/sAoV VTI22.2cm AO Peak GR.9.8mmHgLVOT VTI 17.24cm AO Mean GR.3mmHg Mitral Valve MV E Kryaxfea93.1cm/sMV DECEL [id number] MV A Mryecmnp08.1cm/sE/A Ratio1.2 TDI Lateral E' P. V7.08cm/sMedial E' P. V8.30cm/s E/Lateral E'12.4E/Medial E'10.6 Pulmonary Vein S1 Qnjysjzm49.0cm/sS2 Zzoguupx01.18cm/s D2 Addtelmu84.2cm/sPVa [id number] LEFT VENTRICLE The left ventricle is normal size. There is normal left ventricular wall thickness. The left ventricu lar systolic function is normal and the ejection fraction is within normal range. The Ejection Fracti on is >55%. There is normal LV segmental wall motion. Transmitral Doppler flow pattern is Grade II-ps eudonormal filling dynamics. RIGHT VENTRICLE The right ventricle is normal size. The right ventricle is mildly hypertrophied. The right ventricula r systolic function is normal. ATRIA The left atrium size is normal. The right atrium size is normal. The interatrial septum is intact wit h no evidence for an atrial septal defect or patent foramen ovale as noted on 2-D or Doppler imaging. AORTIC VALVE The aortic valve is normal in structure and function. Doppler and Color Flow revealed no significant aortic regurgitation. There is no significant aortic valvular stenosis. MITRAL VALVE The mitral valve is normal in structure and function. There is no evidence of mitral valve prolapse. There is no mitral valve stenosis. Doppler and Color Flow revealed no mitral valve regurgitation note d. TRICUSPID VALVE The tricuspid valve is normal in structure and function. Doppler and Color Flow revealed trace tricus pid regurgitation with an estimated PAP of 29 mmHg. There is no tricuspid valve prolapse or vegetatio n. There is no tricuspid valve stenosis. PULMONIC VALVE The pulmonic valve is not well visualized. Doppler and Color Flow revealed no pulmonic valvular regur gitation. GREAT VESSELS The aortic root is normal in size. The IVC is normal in size and collapses >50% with inspiration. PERICARDIAL EFFUSION There is a trace pericardial effusion. Critical Notification Critical Value: No <Conclusion> The left ventricular systolic function is normal and the ejection fraction is within normal range. Th e Ejection Fraction is >55%. There is normal LV segmental wall motion. There is a trace pericardial effusion. Signed by : Ángel Castillo, Electronically Approved : 12/05/2018 16:41:46
--- NOTE | 2018-12-05 17:18 | NUR ---
Morning Lantus: Administered 30 units. AM FSBS were 53 and f/u FSBS was 63.
[2018-12-05 19:00] VITALS: BP 164/95
[2018-12-05 23:00] VITALS: BP 152/101
[2018-12-06] VITALS (7 sets, daily range): BP systolic 117–165; BP diastolic 63–104
[2018-12-06] MEDS: INSULIN LISPRO 300 UNITS/3 ML VIAL. SQ SCH ×3 (08:00→17:00)
--- NOTE | 2018-12-06 09:00 | NUR ---
SS following up with discharge planning. SS discussed with pt's RN. Pt medically stable this morning per RN. SS contacted Pema at [facility], ; fax [phone]. SS faxed clinical to Pema at [facility] per request. Pema reported that she would contact SS with an acceptance decision. SS will continue to follow for discharge planning.
--- NOTE | 2018-12-06 10:06 | PDOC ---
PROGRESS NOTES Chief Complaint Chief Complaint Identification/Chief Complaint Chief Complaint 53-year-old male patient with history of depression and anxiety who developed chest pain and shortness of breath after smelling a mixture of ammonia and bleach in an effort to harm himself 12/02 complaining of cough and shortness of breath and dry cough. states he had more than 20 episodes of vomiting but was able to tolerate his breakfast and lunch. Patient also complaining of not feeling well. denies homicidal ideation and hallucination. Patient states he was admitted at [facility] with suicidal ideation previously. States that life seems hopeless, he cannot drive or work due to blindness, his family has forsaken him x 5 yrs, He apparently had a hx of intentional overdose with insulin in 2017. He notes severe dysphoria, finds no pleasure in life, and" wishes to end it all "., has little or no money to spend, does not qualify for food stamps HAS 2 years of college education in [place], but no degree. 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, is followed by [facility] at [facility] History of Present Illness History of Present Illness VTE Prophylaxis Ordered VTE Prophylaxis Devices: Yes VTE Pharmacological Prophylaxi: Yes Assessment/Plan Suicidal ideation INTENTIONAL act of self harm 12/02 by inhalation of fumes morbid obesity CHEST DISCOMFORT inhalation toxicity Anxiety about health Non-cardiac chest pain HYPERTENSION, UNCONTROLLED Uncontrolled diabetes mellitus A1C =8.7 Renal insufficiency, SERA Legally blind MAJOR DEPRESSION ADMITTED suicide precautions accuchecks consult PAT TEAM, SEEN IN ER DVT PROPHYLAXIS SITTER/// MEDICALLY NECESSARY NEPHROLOGY CONSULT INSULIN ORDERED A1C TSH ECHO///Echocardiogram pending. 6 [facility] Cardiology FOLLOWING FLP PENDING BEGIN LISINOPRIL 2.5 MG PO BID 36 MIN PT EXAM, CHART REVIEW, > 50% OF TIME SPENT WITH EXAM, CHART REVIEW, PT CARE COORDINATION Vitals Vitals Vital Signs Date Time Temp Pulse Resp B/P (MAP) Pulse Ox O2 Delivery O2 Flow Rate FiO2 12/06/18 07:00 98.4 89 18 140/85 (103) 94 Room Air 98.4 Physical Exam General: Alert, Oriented X3, Cooperative, No acute distress Heart: Regular rate, Normal S1 Lungs: Clear Abdomen: Soft, No tenderness Extremities: No edema, Normal pulses Skin: No significant lesion Labs LABS Laboratory Tests Test 12/05/18 11:12 12/05/18 15:27 12/05/18 16:31 12/05/18 20:13 Glucose (Fingerstick) 67 mg/dL (70-99) 134 mg/dL (70-99) 146 mg/dL (70-99) 245 mg/dL (70-99) Test 12/05/18 23:05 D-Dimer (Nata) < 0.27 ug/mlFEU Assessment and Plan Assessmemt and Plan Problems Medical Problems: (1) Anxiety about health Status: Acute (2) Legally blind Status: Acute (3) Non-cardiac chest pain Status: Acute (4) Renal insufficiency Status: Acute (5) Suicidal ideation Status: Acute (6) Uncontrolled diabetes mellitus Status: Acute Comment Review of Relevant I have reviewed the following items peter (where applicable) has been applied. Labs Laboratory Tests Test 12/04/18 10:59 12/04/18 15:01 12/04/18 15:22 12/04/18 17:04 Glucose (Fingerstick) 121 mg/dL (70-99) 43 mg/dL (70-99) 150 mg/dL (70-99) 197 mg/dL (70-99) Test 12/04/18 20:50 12/05/18 03:00 12/05/18 07:16 12/05/18 07:35 Glucose (Fingerstick) 299 mg/dL (70-99) 55 mg/dL (70-99) 63 mg/dL (70-99) White Blood Count 5.9 x10^3/uL (4.0-11.0) Red Blood Count 3.69 x10^6/uL (4.30-5.70) Hemoglobin 10.9 g/dL (13.0-17.5) Hematocrit 31.5 % (39.0-53.0) Mean Corpuscular Volume 85 fL (79-100) Mean Corpuscular Hemoglobin 30 pg (25-35) Mean Corpuscular Hemoglobin Concent 35 g/dL (31-37) Red Cell Distribution Width 13.1 % (11.5-14.5) Platelet Count 149 x10^3/uL (140-400) Neutrophils (%) (Auto) 58 % (31-73) Lymphocytes (%) (Auto) 26 % (24-48) Monocytes (%) (Auto) 10 % (0-9) Eosinophils (%) (Auto) 6 % (0-3) Basophils (%) (Auto) 1 % (0-3) Neutrophils # (Auto) 3.5 x10^3/uL (1.8-7.7) Lymphocytes # (Auto) 1.5 x10^3/uL (1.0-4.8) Monocytes # (Auto) 0.6 x10^3/uL (0.0-1.1) Eosinophils # (Auto) 0.3 x10^3/uL (0.0-0.7) Basophils # (Auto) 0.1 x10^3/uL (0.0-0.2) Sodium Level 145 mmol/L (136-145) Potassium Level 4.6 mmol/L (3.5-5.1) Chloride Level 108 mmol/L (98-107) Carbon Dioxide Level 31 mmol/L (21-32) Anion Gap 6 (6-14) Blood Urea Nitrogen 24 mg/dL (8-26) Creatinine 1.3 mg/dL (0.7-1.3) Estimated GFR (Cockcroft-Gault) 58.2 BUN/Creatinine Ratio 18 (6-20) Glucose Level 116 mg/dL (70-99) Calcium Level 8.8 mg/dL (8.5-10.1) Total Bilirubin 0.4 mg/dL (0.2-1.0) Aspartate Amino Transf (AST/SGOT) 11 U/L (15-37) Alanine Aminotransferase (ALT/SGPT) 13 U/L (16-63) Alkaline Phosphatase 64 U/L (46-116) Total Protein 6.7 g/dL (6.4-8.2) Albumin 3.2 g/dL (3.4-5.0) Albumin/Globulin Ratio 0.9 (1.0-1.7) Test 12/05/18 11:12 12/05/18 15:27 12/05/18 16:31 12/05/18 20:13 Glucose (Fingerstick) 67 mg/dL (70-99) 134 mg/dL (70-99) 146 mg/dL (70-99) 245 mg/dL (70-99) Test 12/05/18 23:05 D-Dimer (Nata) < 0.27 ug/mlFEU Laboratory Tests Test 12/05/18 11:12 12/05/18 15:27 12/05/18 16:31 12/05/18 20:13 Glucose (Fingerstick) 67 mg/dL (70-99) 134 mg/dL (70-99) 146 mg/dL (70-99) 245 mg/dL (70-99) Test 12/05/18 23:05 D-Dimer (Nata) < 0.27 ug/mlFEU Medications Current Medications Sodium Chloride 1,000 ml @ 1,000 mls/hr Q1H IV Last administered on 12/02/18 17:16; Start 12/02/18 at 16:27; Stop 12/02/18 at 17:26; Status DC Amlodipine Besylate (Norvasc) 5 mg 1X ONCE PO Last administered on 12/02/18 20:04; Start 12/02/18 at 20:00; Stop 12/02/18 at 20:01; Status DC Amlodipine Besylate (Norvasc) 2.5 mg DAILY PO Last administered on 12/04/18 08:15; Start 12/03/18 at 12:00; Stop 12/04/18 at 13:28; Status DC Insulin Human Lispro (HumaLOG) 15 units TIDWMEALS SQ Last administered on 12/04/18 17:57; Start 12/03/18 at 12:00 Insulin Glargine (Lantus Syringe) 40 unit BID SQ Last administered on 12/05/18 21:34; Start 12/03/18 at 21:00 Sodium Chloride (Normal Saline Flush) 3 ml QSHIFT PRN IV AFTER MEDS AND BLOOD DRAWS; Start 12/03/18 at 11:15 Ondansetron HCl (Zofran) 4 mg PRN Q4HRS PRN IV NAUSEA/VOMITING Last administered on 12/04/18 08:20; Start 12/03/18 at 11:15 Acetaminophen (Tylenol) 650 mg PRN Q4HRS PRN PO TEMP OVER 100.4F OR MILD PAIN Last administered on 12/03/18 18:25; Start 12/03/18 at 11:15 Al Hydroxide/Mg Hydroxide (Mylanta Plus Xs) 30 ml PRN DAILY PRN PO HEARTBURN / GAS; Start 12/03/18 at 11:15 Clonidine HCl (Catapres) 0.1 mg PRN Q6HRS PRN PO SBP>160 OR DBP>90; Start 12/03/18 at 11:15 Docusate Sodium (Colace) 100 mg PRN BID PRN PO CONSTIPATION; Start 12/03/18 at 11:15 Albuterol Sulfate (Ventolin Neb Soln) 2.5 mg PRN Q4HRS PRN NEB SHORTNESS OF BREATH; Start 12/03/18 at 11:15 Lorazepam (Ativan) 0.5 mg PRN Q4HRS PRN PO ANXIETY / AGITATION Last administered on 12/03/18at 18:25; Start 12/03/18 at 11:15 Lorazepam (Ativan Inj) 2 mg PRN Q4HRS PRN IV ANXIETY / AGITATION; Start 12/03/18 at 11:15 Enoxaparin Sodium (Lovenox 40mg Syringe) 40 mg Q24H SQ Last administered on 12/04/18at 12:12; Start 12/03/18 at 12:00 Fluoxetine HCl (PROzac) 10 mg DAILY PO Last administered on 12/05/18at 08:21; Start 12/03/18 at 16:00 Dextrose (Dextrose 50%-Water Syringe) 25 gm STK-MED ONCE IV ; Start 12/03/18 at 20:28; Stop 12/03/18 at 20:29; Status DC Dextrose (Dextrose 50%-Water Syringe) 12.5 gm PRN Q15MIN PRN IV SEE COMMENTS Last administered on 12/04/18at 15:06; Start 12/03/18 at 20:45 Amlodipine Besylate (Norvasc) 5 mg DAILY PO ; Start 12/05/18 at 09:00; Stop 12/05/18 at 07:57; Status DC Amlodipine Besylate (Norvasc) 2.5 mg 1X ONCE PO Last administered on 12/04/18at 14:27; Start 12/04/18 at 14:00; Stop 12/04/18 at 14:01; Status DC Amlodipine Besylate (Norvasc) 10 mg DAILY PO Last administered on 12/05/18at 08:22; Start 12/05/18 at 09:00 Lisinopril (Prinivil) 2.5 mg BID PO Last administered on 12/05/18at 11:30; Start 12/05/18 at 11:30; Stop 12/05/18 at 15:02; Status DC Lisinopril (Prinivil) 5 mg QHS PO Last administered on 12/05/18at 21:30; Start 12/05/18 at 21:00; Stop 12/05/18 at 21:45; Status DC Spironolactone (Aldactone) 25 mg DAILY PO ; Start 12/06/18 at 09:00 Lisinopril (Prinivil) 5 mg BID PO ; Start 12/06/18 at 09:00 Active Scripts Active Reported Amlodipine Besylate 2.5 Mg Tablet 2.5 Mg PO DAILY Novolog Flexpen (Insulin Aspart) 100 Unit/1 Ml Insuln.pen 15 Unit SQ TIDAC Levemir Flextouch (Insulin Detemir) 100 Unit/1 Ml Insuln.pen 40 Unit SQ BID Vitals/I & O Vital Sign - Last 24 Hours 12/05/18 12/05/18 12/05/18 12/05/18 11:00 11:30 14:34 19:00 Temp 97.7 97.6 98.0 97.7 97.6 98.0 Pulse 89 89 78 95 Resp 22 19 18 B/P (MAP) 138/98 (111) 138/98 152/105 (121) 164/95 (118) Pulse Ox 98 96 95 O2 Delivery Room Air Room Air Room Air 12/05/18 12/05/18 12/05/18 12/06/18 20:05 21:30 23:00 03:00 Temp 98.0 98.0 98.0 98.0 Pulse 95 96 93 Resp 20 20 B/P (MAP) 164/95 152/101 (118) 165/104 (124) Pulse Ox 96 98 O2 Delivery Room Air Room Air Room Air 12/06/18 07:00 Temp 98.4 98.4 Pulse 89 Resp 18 B/P (MAP) 140/85 (103) Pulse Ox 94 O2 Delivery Room Air Intake and Output 12/05/18 12/05/18 12/06/18 14:59 22:59 06:59 Intake Total 240 ml 350 ml Output Total 500 ml 350 ml 400 ml Balance -500 ml -110 ml -50 ml KRISTAL VILLALBA MD Dec 06, 2018 10:06
[2018-12-06] MEDS: SPIRONOLACTONE 25 MG TABLET PO SCH (10:37)
[2018-12-06] MEDS: FLUoxetine HCL 10 MG CAPSULE PO SCH (10:37)
[2018-12-06] MEDS: amLODIPine BESYLATE 10 MG TABLET PO SCH (10:38)
[2018-12-06] MEDS: LISINOPRIL 5 MG TABLET. PO SCH (10:39)
[2018-12-06] MEDS: INSULIN GLARGINE SYRINGE. SQ SCH (10:46)
--- NOTE | 2018-12-06 10:50 | RAD ---
V/Q LUNG SCAN CLINICAL INDICATIONS: Chest pain and shortness of breath. Lower extremity swelling. COMPARISON: No previous lung scan available. Chest x-ray dated December 02, 2018. TECHNIQUE: After inhalation of 20 mCi of Xenon 133 gas, anterior and posterior planar images of the lung jones were performed in the single breath and equilibrium and washout phases. After IV infusion of 6.6 mCi of technetium 99m MAA, multiplanar images of both lung jones were performed. FINDINGS: Small peripheral ventilatory defects are seen on the left side. There is retention of radiotracer activity within the left lung base on the ventilation portion of the study. There is no significant retention of radiotracer activity on the right side on the ventilation portion of the study. The finding on the left side may be related to poor inspiration has seen in the chest x-ray of December 02, 2018. There are small perfusion defects on the left side which correspond to the ventilatory defects. There are perfusion defects within both lung bases corresponding to the ventilatory defects. This latter finding may be related to atelectasis given the decreased inspiration on the chest x-ray. Otherwise no segmental perfusion defects are seen. Overall, the probability for pulmonary embolism is low. IMPRESSION: Low probability for pulmonary embolism. Electronically signed by: Rishi Cooper MD (12/06/2018 10:47 AM) [id number]
[2018-12-06] MEDS: ENOXAPARIN 40 MG/0.4 ML SYRINGE. SQ SCH (12:00)
[2018-12-07 03:08] VITALS: BP 149/91
[2018-12-07] MEDS: LISINOPRIL 5 MG TABLET. PO SCH ×3 (05:17→20:08)
[2018-12-07] MEDS: INSULIN GLARGINE SYRINGE. SQ SCH ×2 (05:20→09:00)
[2018-12-07 07:00] VITALS: BP 155/76
[2018-12-07 07:26] LABS: FECAL OB PT NEGATIVE (NEG)
[2018-12-07] MEDS: DEXTROSE 50% 25 GM / 50ML DISP.SYRIN. IV PRN ×3 (07:54→17:01)
[2018-12-07] MEDS: SPIRONOLACTONE 25 MG TABLET PO SCH (08:00)
[2018-12-07] MEDS: FLUoxetine HCL 10 MG CAPSULE PO SCH (08:00)
[2018-12-07] MEDS: INSULIN LISPRO 300 UNITS/3 ML VIAL. SQ SCH ×2 (08:00→12:00)
[2018-12-07] MEDS: amLODIPine BESYLATE 10 MG TABLET PO SCH (08:00)
--- NOTE | 2018-12-07 08:26 | PDOC ---
PROGRESS NOTES Chief Complaint Chief Complaint Identification/Chief Complaint Chief Complaint 53-year-old male patient with history of depression and anxiety who developed chest pain and shortness of breath after smelling a mixture of ammonia and bleach in an effort to harm himself 12/02 complaining of cough and shortness of breath and dry cough. states he had more than 20 episodes of vomiting but was able to tolerate his breakfast and lunch. Patient also complaining of not feeling well. denies homicidal ideation and hallucination. Patient states he was admitted at [facility] with suicidal ideation previously. States that life seems hopeless, he cannot drive or work due to blindness, his family has forsaken him x 5 yrs, He apparently had a hx of intentional overdose with insulin in 2017. He notes severe dysphoria, finds no pleasure in life, and" wishes to end it all "., has little or no money to spend, does not qualify for food stamps HAS 2 years of college education in [place], but no degree. 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 HYPERTENSION, UNCONTROLLED Uncontrolled diabetes mellitus A1C =8.7 Renal insufficiency, SERA Legally blind MAJOR DEPRESSION ADMITTED suicide precautions accuchecks consult PAT TEAM, SEEN IN ER DVT PROPHYLAXIS SITTER/// MEDICALLY NECESSARY NEPHROLOGY CONSULT INSULIN ORDERED A1C TSH ECHO///Echocardiogram pending. 6 [facility] Cardiology FOLLOWING FLP PENDING BEGIN LISINOPRIL 2.5 MG PO BID 12/07 labs stable, htn controlled, cardiology has signed off ok to transfer to inpt psych unit 26 MIN PT EXAM, CHART REVIEW, > 50% OF TIME SPENT WITH EXAM, CHART REVIEW, PT CARE COORDINATION Vitals Vitals Vital Signs Date Time Temp Pulse Resp B/P (MAP) Pulse Ox O2 Delivery O2 Flow Rate FiO2 12/07/18 08:00 90 155/76 12/07/18 07:00 97.6 18 99 Room Air 97.6 Physical Exam General: Alert, Oriented X3, Cooperative, No acute distress Heart: Regular rate, Normal S1, No murmurs Lungs: Clear Abdomen: Soft, No tenderness Extremities: No edema, Normal pulses Skin: No significant lesion Labs LABS EXAM: Two-dimensional and M-mode echocardiogram with Doppler and color Doppler. Other Information Quality : Average HR: 90bpm INDICATION Dyspnea Chest Pain RISK FACTORS Hypertension Diabetes 2D DIMENSIONS RVDd 3.2 (2.9-3.5cm) Left Atrium(2D) 3.5 (1.6-4.0cm) IVSd 0.9 (0.7-1.1cm) Aortic Root(2D) 2.5 (2.0-3.7cm) LVDd 5.0 (3.9-5.9cm) LVOT Diameter 1.9 (1.8-2.4cm) PWd 0.9 (0.7-1.1cm) LVDs 2.7 (2.5-4.0cm) FS (%) 46.1 % SV 91.2 ml LVEF(%) 77.2 (>50%) Aortic Valve AoV Peak Mir. 156.9cm/s AoV VTI 22.2cm AO Peak GR. 9.8mmHg LVOT VTI 17.24cm AO Mean GR. 3mmHg Mitral Valve MV E Velocity 88.1cm/s MV DECEL TIME 185ms MV A Velocity 72.1cm/s E/A Ratio 1.2 TDI Lateral E' P. V 7.08cm/s Medial E' P. V 8.30cm/s E/Lateral E' 12.4 E/Medial E' 10.6 Pulmonary Vein S1 Velocity 42.0cm/s S2 Velocity 44.18cm/s D2 Velocity 44.2cm/s PVa duration 115msec LEFT VENTRICLE The left ventricle is normal size. There is normal left ventricular wall thickness. The left ventricular systolic function is normal and the ejection fraction is within normal range. The Ejection Fraction is >55%. There is normal LV segmental wall motion. Transmitral Doppler flow pattern is Grade II- pseudonormal filling dynamics. RIGHT VENTRICLE The right ventricle is normal size. The right ventricle is mildly hypertrophied. The right ventricular systolic function is normal. ATRIA The left atrium size is normal. The right atrium size is normal. The interatrial septum is intact with no evidence for an atrial septal defect or patent foramen ovale as noted on 2-D or Doppler imaging. AORTIC VALVE The aortic valve is normal in structure and function. Doppler and Color Flow revealed no significant aortic regurgitation. There is no significant aortic valvular stenosis. MITRAL VALVE The mitral valve is normal in structure and function. There is no evidence of mitral valve prolapse. There is no mitral valve stenosis. Doppler and Color Flow revealed no mitral valve regurgitation noted. TRICUSPID VALVE The tricuspid valve is normal in structure and function. Doppler and Color Flow revealed trace tricuspid regurgitation with an estimated PAP of 29 mmHg. There is no tricuspid valve prolapse or vegetation. There is no tricuspid valve stenosis. PULMONIC VALVE The pulmonic valve is not well visualized. Doppler and Color Flow revealed no pulmonic valvular regurgitation. GREAT VESSELS The aortic root is normal in size. The IVC is normal in size and collapses >50% with inspiration. PERICARDIAL EFFUSION There is a trace pericardial effusion. Critical Notification Critical Value: No <Conclusion> The left ventricular systolic function is normal and the ejection fraction is within normal range. The Ejection Fraction is >55%. There is normal LV segmental wall motion. There is a trace pericardial effusion. Signed by : Jerilyn Castillo, Electronically Approved : 12/05/2018 16:41:46 DICTATED and SIGNED BY: JERILYN CASTILLO MD DATE: 12/05/18 1636 PATIENT: BERNABE GILL ACCOUNT: [id number] : 1965 LOCATION: [address] [place] [address] AGE: 53 SEX: M EXAM STATUS: ADM IN ORD. PHYSICIAN: KRISTAL VILLALBA MD REASON: chest pain for next day PROCEDURE: LUNG VENT/PERFUSION SCAN(VQ) V/Q LUNG SCAN CLINICAL INDICATIONS: Chest pain and shortness of breath. Lower extremity swelling. COMPARISON: No previous lung scan available. Chest x-ray dated December 02, 2018. TECHNIQUE: After inhalation of 20 mCi of Xenon 133 gas, anterior and posterior planar images of the lung jones were performed in the single breath and equilibrium and washout phases. After IV infusion of 6.6 mCi of technetium 99m MAA, multiplanar images of both lung jones were performed. FINDINGS: Small peripheral ventilatory defects are seen on the left side. There is retention of radiotracer activity within the left lung base on the ventilation portion of the study. There is no significant retention of radiotracer activity on the right side on the ventilation portion of the study. The finding on the left side may be related to poor inspiration has seen in the chest x-ray of December 02, 2018. There are small perfusion defects on the left side which correspond to the ventilatory defects. There are perfusion defects within both lung bases corresponding to the ventilatory defects. This latter finding may be related to atelectasis given the decreased inspiration on the chest x-ray. Otherwise no segmental perfusion defects are seen. Overall, the probability for pulmonary embolism is low. IMPRESSION: Low probability for pulmonary embolism. Electronically signed by: Rishi Cooper MD (12/06/2018 10:47 AM) [id number] Laboratory Tests Test 12/06/18 12:08 12/06/18 16:41 12/06/18 20:40 12/07/18 07:00 Glucose (Fingerstick) 120 mg/dL (70-99) 127 mg/dL (70-99) 156 mg/dL (70-99) Stool Occult Blood Negative (NEG) Test 12/07/18 07:08 Glucose (Fingerstick) 53 mg/dL (70-99) Assessment and Plan Assessmemt and Plan Problems Medical Problems: (1) Anxiety about health Status: Acute (2) Legally blind Status: Acute (3) Non-cardiac chest pain Status: Acute (4) Renal insufficiency Status: Acute (5) Suicidal ideation Status: Acute (6) Uncontrolled diabetes mellitus Status: Acute Comment Review of Relevant I have reviewed the following items peter (where applicable) has been applied. Labs Laboratory Tests Test 12/05/18 11:12 12/05/18 15:27 12/05/18 16:31 12/05/18 20:13 Glucose (Fingerstick) 67 mg/dL (70-99) 134 mg/dL (70-99) 146 mg/dL (70-99) 245 mg/dL (70-99) Test 12/05/18 23:05 12/06/18 07:22 12/06/18 12:08 12/06/18 16:41 D-Dimer (Nata) < 0.27 ug/mlFEU Glucose (Fingerstick) 89 mg/dL (70-99) 120 mg/dL (70-99) 127 mg/dL (70-99) Test 12/06/18 20:40 12/07/18 07:00 12/07/18 07:08 Glucose (Fingerstick) 156 mg/dL (70-99) 53 mg/dL (70-99) Stool Occult Blood Negative (NEG) Laboratory Tests Test 12/06/18 12:08 12/06/18 16:41 12/06/18 20:40 12/07/18 07:00 Glucose (Fingerstick) 120 mg/dL (70-99) 127 mg/dL (70-99) 156 mg/dL (70-99) Stool Occult Blood Negative (NEG) Test 12/07/18 07:08 Glucose (Fingerstick) 53 mg/dL (70-99) Medications Current Medications Sodium Chloride 1,000 ml @ 1,000 mls/hr Q1H IV Last administered on 12/02/18 17:16; Start 12/02/18 at 16:27; Stop 12/02/18 at 17:26; Status DC Amlodipine Besylate (Norvasc) 5 mg 1X ONCE PO Last administered on 12/02/18 20:04; Start 12/02/18 at 20:00; Stop 12/02/18 at 20:01; Status DC Amlodipine Besylate (Norvasc) 2.5 mg DAILY PO Last administered on 12/04/18 08:15; Start 12/03/18 at 12:00; Stop 12/04/18 at 13:28; Status DC Insulin Human Lispro (HumaLOG) 15 units TIDWMEALS SQ Last administered on 12/06/18 12:59; Start 12/03/18 at 12:00 Insulin Glargine (Lantus Syringe) 40 unit BID SQ Last administered on 12/07/18 05:20; Start 12/03/18 at 21:00 Sodium Chloride (Normal Saline Flush) 3 ml QSHIFT PRN IV AFTER MEDS AND BLOOD DRAWS; Start 12/03/18 at 11:15 Ondansetron HCl (Zofran) 4 mg PRN Q4HRS PRN IV NAUSEA/VOMITING Last administered on 12/04/18 08:20; Start 12/03/18 at 11:15 Acetaminophen (Tylenol) 650 mg PRN Q4HRS PRN PO TEMP OVER 100.4F OR MILD PAIN Last administered on 10/6/19at 18:25; Start 12/03/18 at 11:15 Al Hydroxide/Mg Hydroxide (Mylanta Plus Xs) 30 ml PRN DAILY PRN PO HEARTBURN / GAS; Start 12/03/18 at 11:15 Clonidine HCl (Catapres) 0.1 mg PRN Q6HRS PRN PO SBP>160 OR DBP>90; Start 12/03/18 at 11:15 Docusate Sodium (Colace) 100 mg PRN BID PRN PO CONSTIPATION; Start 12/03/18 at 11:15 Albuterol Sulfate (Ventolin Neb Soln) 2.5 mg PRN Q4HRS PRN NEB SHORTNESS OF BREATH; Start 12/03/18 at 11:15 Lorazepam (Ativan) 0.5 mg PRN Q4HRS PRN PO ANXIETY / AGITATION Last administered on 12/03/18at 18:25; Start 12/03/18 at 11:15 Lorazepam (Ativan Inj) 2 mg PRN Q4HRS PRN IV ANXIETY / AGITATION; Start 12/03/18 at 11:15 Enoxaparin Sodium (Lovenox 40mg Syringe) 40 mg Q24H SQ Last administered on 12/04/18at 12:12; Start 12/03/18 at 12:00 Fluoxetine HCl (PROzac) 10 mg DAILY PO Last administered on 12/07/18at 08:00; Start 12/03/18 at 16:00 Dextrose (Dextrose 50%-Water Syringe) 25 gm STK-MED ONCE IV ; Start 12/03/18 at 20:28; Stop 12/03/18 at 20:29; Status DC Dextrose (Dextrose 50%-Water Syringe) 12.5 gm PRN Q15MIN PRN IV SEE COMMENTS Last administered on 12/07/18at 07:54; Start 12/03/18 at 20:45 Amlodipine Besylate (Norvasc) 5 mg DAILY PO ; Start 12/05/18 at 09:00; Stop 12/05/18 at 07:57; Status DC Amlodipine Besylate (Norvasc) 2.5 mg 1X ONCE PO Last administered on 12/04/18at 14:27; Start 12/04/18 at 14:00; Stop 12/04/18 at 14:01; Status DC Amlodipine Besylate (Norvasc) 10 mg DAILY PO Last administered on 12/07/18 08:00; Start 12/05/18 at 09:00 Lisinopril (Prinivil) 2.5 mg BID PO Last administered on 12/05/18 11:30; Start 12/05/18 at 11:30; Stop 12/05/18 at 15:02; Status DC Lisinopril (Prinivil) 5 mg QHS PO Last administered on 12/05/18 21:30; Start 12/05/18 at 21:00; Stop 12/05/18 at 21:45; Status DC Spironolactone (Aldactone) 25 mg DAILY PO Last administered on 12/07/18 08:00; Start 12/06/18 at 09:00 Lisinopril (Prinivil) 5 mg BID PO Last administered on 12/07/18 08:00; Start 12/06/18 at 09:00 Active Scripts Active Reported Amlodipine Besylate 2.5 Mg Tablet 2.5 Mg PO DAILY Novolog Flexpen (Insulin Aspart) 100 Unit/1 Ml Insuln.pen 15 Unit SQ TIDAC Levemir Flextouch (Insulin Detemir) 100 Unit/1 Ml Insuln.pen 40 Unit SQ BID Vitals/I & O Vital Sign - Last 24 Hours 12/06/18 12/06/18 12/06/18 12/06/18 10:38 10:39 11:00 12:12 Temp 98.0 98.0 Pulse 85 85 85 Resp 16 B/P (MAP) 148/82 148/82 148/82 (104) 164/97 (119) Pulse Ox 98 O2 Delivery Room Air 12/06/18 12/06/18 12/06/18 12/06/18 15:00 19:00 20:15 23:21 Temp 98.0 98.2 98.5 98.0 98.2 98.5 Pulse 87 90 80 Resp 16 18 20 B/P (MAP) 117/63 (81) 144/91 (108) 157/93 (114) Pulse Ox 96 96 97 O2 Delivery Room Air Room Air Room Air Room Air 12/07/18 12/07/18 12/07/18 12/07/18 03:08 05:17 07:00 08:00 Temp 98.4 97.6 98.4 97.6 Pulse 83 83 90 90 Resp 18 18 B/P (MAP) 149/91 (110) 149/91 155/76 (102) 155/76 Pulse Ox 97 99 O2 Delivery Room Air Room Air 12/07/18 08:00 Pulse 90 B/P (MAP) 155/76 Intake and Output 12/06/18 12/06/18 12/07/18 15:00 23:00 07:00 Intake Total 355 ml 400 ml Output Total 220 ml 550 ml Balance 355 ml 180 ml -550 ml KRISTAL VILLALBA MD Dec 07, 2018 08:26
--- NOTE | 2018-12-07 08:41 | NUR ---
Lantus was administered at 0520 this morning. The patient's prebreakfast glucose was 53 mg/dl. He's awake, alert, oriented, no symptoms of hypoglycemia. Apple juice given and dextrose per IV administered per protocol. Repeat blood glucose is 128mg/dL. We will continue to monitor.
--- NOTE | 2018-12-07 09:13 | NUR ---
MARGARETH following pt. Spoke with Ramonita at [facility] and she reported they would have restart referral again as pt was previously declined. She reported they are currently full but do anticipate discharges today. Pending dc, she will submit referral to admission Physician. Discussed with PAT team for a new evaluation today and Marco A will come in to see pt today and possibly also try other inpt psych placements.
[2018-12-07 11:00] VITALS: BP 137/80
[2018-12-07] MEDS: ENOXAPARIN 40 MG/0.4 ML SYRINGE. SQ SCH (11:29)
--- NOTE | 2018-12-07 12:23 | NUR ---
Non administered lunch dose of insulin lispro, blood glucose premeal was 54 mg/dl. The patient is awake, alert, oriented and denies hypoglycemia symptoms. He was given IV dextrose per protocol and was encouraged to eat. Repeat glucose was 81mg/dl;we'll continue to monitor.
[2018-12-07 13:46] LABS: BASO # 0.1 x10^3/uL (0.0-0.2); BASO % 1 % (0-3); EOS # 0.3 x10^3/uL (0.0-0.7); EOS % 4 % (0-3); HEMATOCRIT 34.5 % (39.0-53.0); HEMOGLOBIN 11.8 g/dL (13.0-17.5); LYMPH # 1.3 x10^3/uL (1.0-4.8); LYMPH % 18 % (24-48); MEAN CORPUSCULAR HEMOGLOBIN 29 pg (25-35); MEAN CORPUSCULAR HGB CONC 34 g/dL (31-37); MEAN CORPUSCULAR VOLUME 85 fL (79-100); MONO # 0.5 x10^3/uL (0.0-1.1); MONO % 7 % (0-9); NEUT % 70 % (31-73); PLATELET COUNT 165 x10^3/uL (140-400); RED BLOOD COUNT 4.04 x10^6/uL (4.30-5.70); RED CELL DISTRIBUTION WIDTH 13.4 % (11.5-14.5); WHITE BLOOD COUNT 7.2 x10^3/uL (4.0-11.0)
[2018-12-07 14:05] LABS: ALBUMIN 3.4 g/dL (3.4-5.0); ALBUMIN/GLOBULIN RATIO 0.9 (1.0-1.7); CALCIUM 9.2 mg/dL (8.5-10.1); CREATININE 1.2 mg/dL (0.7-1.3); GFR 63.8; POTASSIUM 4.7 mmol/L (3.5-5.1); TOTAL BILIRUBIN 0.8 mg/dL (0.2-1.0); TOTAL PROTEIN 7.2 g/dL (6.4-8.2)
--- NOTE | 2018-12-07 14:54 | NUR ---
SW following pt. Pt seen by PAT team and still has SI. MARGARETH faxed updates to [facility]. MARGARETH spoke with Gini at [facility] and pt is accepted. She reported they are awaiting on bed assignment at this time. MARGARETH provided RN's number to call after 1630. Referral faxed to [facility], , fax:[phone] and [facility], phone: [phone], fax: [phone] as well. D/W RN.
[2018-12-07 15:00] VITALS: BP 121/72
--- NOTE | 2018-12-07 16:23 | NUR ---
SW following pt. Pt has an assigned bed at [facility] B floor, room 2205. Gini reported transport can not be arranged until a nurse from their facility calls for a report. [facility] EMS form faxed and on Chart. RN aware to call [facility], phone: [phone] to set up transport after calls for report. No other needs at this time.
[2018-12-07] MEDS ORDERED: INSULIN LISPRO 300 UNITS/3 ML VIAL. SQ SCH (17:00)
--- NOTE | 2018-12-07 17:12 | NUR ---
The patient's predinner glucose is 57mg/dl. He claims to be asymptomatic. Paged Dr. Brooks at [phone], discussed the glucose trend. Orders received to adjust insulin dose.
[2018-12-07 19:00] VITALS: BP 139/81
[2018-12-07 20:08] VITALS: BP 139/81
[2018-12-07] MEDS ORDERED: INSULIN GLARGINE SYRINGE. SQ SCH (21:00)
--- NOTE | 2018-12-07 22:15 | NUR ---
[facility] ambulance personnel here to pickle sorter pt. Pt cooperative with staff. IV d/c'ed from R hand. Pt did again express concern that no one had informed him that he was leaving or where he was going. RN apologized from delay in information and informed him of plan of care. Pt strapped to [facility] per EMS personnel and left floor at 2225.
[2018-12-08] MEDS ORDERED: INSULIN GLARGINE SYRINGE. SQ SCH (09:00)
--- NOTE | 2018-12-08 15:18 | PDOC3 ---
Discharge Summary Date of Admission: Dec 02, 2018 Date of Discharge: Dec 07, 2018 Follow-Up: 1-2 days Admitting Diagnosis comment: Chief Complaint 53-year-old male patient with history of depression and anxiety who developed chest pain and shortness of breath after smelling a mixture of ammonia and bleach in an effort to harm himself 12/02 complaining of cough and shortness of breath and dry cough. states he had more than 20 episodes of vomiting but was able to tolerate his breakfast and lunch. Patient also complaining of not feeling well. denies homicidal ideation and hallucination. Patient states he was admitted at [facility] with suicidal ideation previously. States that life seems hopeless, he cannot drive or work due to blindness, his family has forsaken him x 5 yrs, He apparently had a hx of intentional overdose with insulin in 2017. He notes severe dysphoria, finds no pleasure in life, and" wishes to end it all "., has little or no money to spend, does not qualify for food stamps HAS 2 years of college education in [place], but no degree. 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 HYPERTENSION, UNCONTROLLED Uncontrolled diabetes mellitus A1C =8.7 Renal insufficiency, SERA Legally blind MAJOR DEPRESSION ADMITTED suicide precautions accuchecks consult PAT TEAM, SEEN IN ER DVT PROPHYLAXIS SITTER/// MEDICALLY NECESSARY NEPHROLOGY CONSULT INSULIN ORDERED A1C TSH ECHO///Echocardiogram pending. 6 [facility] Cardiology FOLLOWING [facility] PENDING BEGIN LISINOPRIL 2.5 MG PO BID 12/07 labs stable, htn controlled, cardiology has signed off ok to transfer to inpt psych unit [facility] 34 MIN PT EXAM, CHART REVIEW d/c planning time , > 50% OF TIME SPENT WITH EXAM, CHART REVIEW, PT CARE COORDINATION Vitals Vitals Vital Signs Date Time Temp Pulse Resp B/P (MAP) Pulse Ox O2 Delivery O2 Flow Rate FiO2 12/07/18 08:00 90 155/76 12/07/18 07:00 97.6 18 99 Room Air 97.6 Physical Exam General: Alert, Oriented X3, Cooperative, No acute distress Heart: Regular rate, Normal S1, No murmurs Lungs: Clear Abdomen: Soft, No tenderness Extremities: No edema, Normal pulses Skin: No significant lesion Labs LABS EXAM: Two-dimensional and M-mode echocardiogram with Doppler and color Doppler. Other Information Quality : Average HR: 90bpm INDICATION Dyspnea Chest Pain RISK FACTORS Hypertension Diabetes 2D DIMENSIONS RVDd 3.2 (2.9-3.5cm) Left Atrium(2D) 3.5 (1.6-4.0cm) IVSd 0.9 (0.7-1.1cm) Aortic Root(2D) 2.5 (2.0-3.7cm) LVDd 5.0 (3.9-5.9cm) LVOT Diameter 1.9 (1.8-2.4cm) PWd 0.9 (0.7-1.1cm) LVDs 2.7 (2.5-4.0cm) FS (%) 46.1 % SV 91.2 ml LVEF(%) 77.2 (>50%) Aortic Valve AoV Peak Mir. 156.9cm/s AoV VTI 22.2cm AO Peak GR. 9.8mmHg LVOT VTI 17.24cm AO Mean GR. 3mmHg Mitral Valve MV E Velocity 88.1cm/s MV DECEL TIME 185ms MV A Velocity 72.1cm/s E/A Ratio 1.2 TDI Lateral E' P. V 7.08cm/s Medial E' P. V 8.30cm/s E/Lateral E' 12.4 E/Medial E' 10.6 Pulmonary Vein S1 Velocity 42.0cm/s S2 Velocity 44.18cm/s D2 Velocity 44.2cm/s PVa duration 115msec LEFT VENTRICLE The left ventricle is normal size. There is normal left ventricular wall thic kness. The left ventricular systolic function is normal and the ejection fraction is within normal range. The Ejection Fraction is >55%. There is normal LV segmental wall motion. Transmitral Doppler flow pattern is Grade II- pseudonormal filling dynamics. RIGHT VENTRICLE The right ventricle is normal size. The right ventricle is mildly hypertrophied. The right ventricular systolic function is normal. ATRIA The left atrium size is normal. The right atrium size is normal. The interatrial septum is intact with no evidence for an atrial septal defect or patent foramen ovale as noted on 2-D or Doppler imaging. AORTIC VALVE The aortic valve is normal in structure and function. Doppler and Color Flow revealed no significant aortic regurgitation. There is no significant aortic valvular stenosis. MITRAL VALVE The mitral valve is normal in structure and function. There is no evidence of mitral valve prolapse. There is no mitral valve stenosis. Doppler and Color Flow revealed no mitral valve regurgitation noted. TRICUSPID VALVE The tricuspid valve is normal in structure and function. Doppler and Color Flow revealed trace tricuspid regurgitation with an estimated PAP of 29 mmHg. There is no tricuspid valve prolapse or vegetation. There is no tricuspid valve stenosis. PULMONIC VALVE The pulmonic valve is not well visualized. Doppler and Color Flow revealed no pulmonic valvular regurgitation. GREAT VESSELS The aortic root is normal in size. The IVC is normal in size and collapses >50% with inspiration. PERICARDIAL EFFUSION There is a trace pericardial effusion. Critical Notification Critical Value: No <Conclusion> The left ventricular systolic function is normal and the ejection fraction is within normal range. The Ejection Fraction is >55%. There is normal LV segmental wall motion. There is a trace pericardial effusion. Signed by : Jerilyn Castillo, Electronically Approved : 12/05/2018 16:41:46 DICTATED and SIGNED BY: JERILYN CASTILLO MD DATE: 12/05/18 1636 PATIENT: BERNABE LUA ACCOUNT: [id number] : 1965 LOCATION: [address] [place] [address] AGE: 53 SEX: M EXAM STATUS: ADM IN ORD. PHYSICIAN: KRISTAL VILLALBA MD REASON: chest pain for next day PROCEDURE: LUNG VENT/PERFUSION SCAN(VQ) V/Q LUNG SCAN CLINICAL INDICATIONS: Chest pain and shortness of breath. Lower extremity swelling. COMPARISON: No previous lung scan available. Chest x-ray dated December 02, 2018. TECHNIQUE: After inhalation of 20 mCi of Xenon 133 gas, anterior and posterior planar images of the lung jones were performed in the single breath and equilibrium and washout phases. After IV infusion of 6.6 mCi of technetium 99m MAA, multiplanar images of both lung jones were performed. FINDINGS: Small peripheral ventilatory defects are seen on the left side. There is retention of radiotracer activity within the left lung base on the ventilation portion of the study. There is no significant retention of radiotracer activity on the right side on the ventilation portion of the study. The finding on the left side may be related to poor inspiration has seen in the chest x-ray of December 02, 2018. There are small perfusion defects on the left side which correspond to the ventilatory defects. There are perfusion defects within both lung bases corresponding to the ventilatory defects. This latter finding may be related to atelectasis given the decreased inspiration on the chest x-ray. Otherwise no segmental perfusion defects are seen. Overall, the probability for pulmonary embolism is low. IMPRESSION: Low probability for pulmonary embolism. Electronically signed by: Rishi Cooper MD (12/06/2018 10:47 AM) [id number] FINAL DIAGNOSIS Problems Medical Problems: (1) Anxiety about health Status: Acute (2) Legally blind Status: Acute (3) Non-cardiac chest pain Status: Acute (4) Renal insufficiency Status: Acute (5) Suicidal ideation Status: Acute (6) Uncontrolled diabetes mellitus Status: Acute Brief Hospital Course Mr. Lua is a 53 old [sex] who presented with [suicide ideation ] CONDITION AT DISCHARGE: Comment (guarded) Discharge Medications Current Medications Sodium Chloride 1,000 ml @ 1,000 mls/hr Q1H IV Last administered on 12/02/18at 17:16; Start 12/02/18 at 16:27; Stop 12/02/18 at 17:26; Status DC Amlodipine Besylate (Norvasc) 5 mg 1X ONCE PO Last administered on 12/02/18at 20:04; Start 12/02/18 at 20:00; Stop 12/02/18 at 20:01; Status DC Amlodipine Besylate (Norvasc) 2.5 mg DAILY PO Last administered on 12/04/18at 08:15; Start 12/03/18 at 12:00; Stop 12/04/18 at 13:28; Status DC Insulin Human Lispro (HumaLOG) 15 units TIDWMEALS SQ Last administered on 12/06/18at 12:59; Start 12/03/18 at 12:00; Stop 12/07/18 at 16:57; Status DC Insulin Glargine (Lantus Syringe) 40 unit BID SQ Last administered on 12/07/18at 05:20; Start 12/03/18 at 21:00; Stop 12/07/18 at 16:57; Status DC Sodium Chloride (Normal Saline Flush) 3 ml QSHIFT PRN IV AFTER MEDS AND BLOOD DRAWS; Start 12/03/18 at 11:15; Stop 12/07/18 at 23:51; Status DC Ondansetron HCl (Zofran) 4 mg PRN Q4HRS PRN IV NAUSEA/VOMITING Last administered on 12/04/18at 08:20; Start 12/03/18 at 11:15; Stop 12/07/18 at 23:51; Status DC Acetaminophen (Tylenol) 650 mg PRN Q4HRS PRN PO TEMP OVER 100.4F OR MILD PAIN Last administered on 12/03/18at 18:25; Start 12/03/18 at 11:15; Stop 12/07/18 at 23:51; Status DC Al Hydroxide/Mg Hydroxide (Mylanta Plus Xs) 30 ml PRN DAILY PRN PO HEARTBURN / GAS; Start 12/03/18 at 11:15; Stop 12/07/18 at 23:51; Status DC Clonidine HCl (Catapres) 0.1 mg PRN Q6HRS PRN PO SBP>160 OR DBP>90; Start 12/03/18 at 11:15; Stop 12/07/18 at 23:51; Status DC Docusate Sodium (Colace) 100 mg PRN BID PRN PO CONSTIPATION; Start 12/03/18 at 11:15; Stop 12/07/18 at 23:51; Status DC Albuterol Sulfate (Ventolin Neb Soln) 2.5 mg PRN Q4HRS PRN NEB SHORTNESS OF BREATH; Start 12/03/18 at 11:15; Stop 12/07/18 at 23:51; Status DC Lorazepam (Ativan) 0.5 mg PRN Q4HRS PRN PO ANXIETY / AGITATION Last administered on 12/03/18at 18:25; Start 12/03/18 at 11:15; Stop 12/07/18 at 23:51; Status DC Lorazepam (Ativan Inj) 2 mg PRN Q4HRS PRN IV ANXIETY / AGITATION; Start 12/03/18 at 11:15; Stop 12/07/18 at 23:51; Status DC Enoxaparin Sodium (Lovenox 40mg Syringe) 40 mg Q24H SQ Last administered on 12/07/18at 11:29; Start 12/03/18 at 12:00; Stop 12/07/18 at 23:51; Status DC Fluoxetine HCl (PROzac) 10 mg DAILY PO Last administered on 12/07/18at 08:00; Start 12/03/18 at 16:00; Stop 12/07/18 at 23:51; Status DC Dextrose (Dextrose 50%-Water Syringe) 25 gm STK-MED ONCE IV ; Start 12/03/18 at 20:28; Stop 12/03/18 at 20:29; Status DC Dextrose (Dextrose 50%-Water Syringe) 12.5 gm PRN Q15MIN PRN IV SEE COMMENTS Last administered on 12/07/18at 17:01; Start 12/03/18 at 20:45; Stop 12/07/18 at 23:51; Status DC Amlodipine Besylate (Norvasc) 5 mg DAILY PO ; Start 12/05/18 at 09:00; Stop 12/05/18 at 07:57; Status DC Amlodipine Besylate (Norvasc) 2.5 mg 1X ONCE PO Last administered on 12/04/18at 14:27; Start 12/04/18 at 14:00; Stop 12/04/18 at 14:01; Status DC Amlodipine Besylate (Norvasc) 10 mg DAILY PO Last administered on 12/07/18at 08:00; Start 12/05/18 at 09:00; Stop 12/07/18 at 23:51; Status DC Lisinopril (Prinivil) 2.5 mg BID PO Last administered on 12/05/18at 11:30; Start 12/05/18 at 11:30; Stop 12/05/18 at 15:02; Status DC Lisinopril (Prinivil) 5 mg QHS PO Last administered on 12/05/18at 21:30; Start 12/05/18 at 21:00; Stop 12/05/18 at 21:45; Status DC Spironolactone (Aldactone) 25 mg DAILY PO Last administered on 12/07/18at 08:00; Start 12/06/18 at 09:00; Stop 12/07/18 at 23:51; Status DC Lisinopril (Prinivil) 5 mg BID PO Last administered on 12/07/18at 20:08; Start 12/06/18 at 09:00; Stop 12/07/18 at 23:51; Status DC Insulin Glargine (Lantus Syringe) 25 unit DAILY SQ ; Start 12/08/18 at 09:00; Stop 12/07/18 at 23:51; Status DC Insulin Human Lispro (HumaLOG) 10 units TIDWMEALS SQ ; Start 12/07/18 at 17:00; Stop 12/07/18 at 23:51; Status DC Insulin Glargine (Lantus Syringe) 25 unit QHS SQ ; Start 12/07/18 at 21:00; Stop 12/07/18 at 23:51; Status DC Active Scripts Active Reported Amlodipine Besylate 2.5 Mg Tablet 2.5 Mg PO DAILY Novolog Flexpen (Insulin Aspart) 100 Unit/1 Ml Insuln.pen 15 Unit SQ TIDAC Levemir Flextouch (Insulin Detemir) 100 Unit/1 Ml Insuln.pen 40 Unit SQ BID Vital Signs Vital Signs Date Time Temp Pulse Resp B/P (MAP) Pulse Ox O2 Delivery O2 Flow Rate FiO2 12/07/18 20:08 85 139/81 12/07/18 19:00 98.1 18 95 Room Air 98.1 Labs Laboratory Tests Test 12/06/18 16:41 12/06/18 20:40 12/07/18 07:00 12/07/18 07:08 Glucose (Fingerstick) 127 mg/dL (70-99) 156 mg/dL (70-99) 53 mg/dL (70-99) Stool Occult Blood Negative (NEG) Test 12/07/18 08:30 12/07/18 11:19 12/07/18 12:17 12/07/18 13:05 Glucose (Fingerstick) 128 mg/dL (70-99) 54 mg/dL (70-99) 81 mg/dL (70-99) White Blood Count 7.2 x10^3/uL (4.0-11.0) Red Blood Count 4.04 x10^6/uL (4.30-5.70) Hemoglobin 11.8 g/dL (13.0-17.5) Hematocrit 34.5 % (39.0-53.0) Mean Corpuscular Volume 85 fL (79-100) Mean Corpuscular Hemoglobin 29 pg (25-35) Mean Corpuscular Hemoglobin Concent 34 g/dL (31-37) Red Cell Distribution Width 13.4 % (11.5-14.5) Platelet Count 165 x10^3/uL (140-400) Neutrophils (%) (Auto) 70 % (31-73) Lymphocytes (%) (Auto) 18 % (24-48) Monocytes (%) (Auto) 7 % (0-9) Eosinophils (%) (Auto) 4 % (0-3) Basophils (%) (Auto) 1 % (0-3) Neutrophils # (Auto) 5.0 x10^3/uL (1.8-7.7) Lymphocytes # (Auto) 1.3 x10^3/uL (1.0-4.8) Monocytes # (Auto) 0.5 x10^3/uL (0.0-1.1) Eosinophils # (Auto) 0.3 x10^3/uL (0.0-0.7) Basophils # (Auto) 0.1 x10^3/uL (0.0-0.2) Sodium Level 141 mmol/L (136-145) Potassium Level 4.7 mmol/L (3.5-5.1) Chloride Level 105 mmol/L (98-107) Carbon Dioxide Level 29 mmol/L (21-32) Anion Gap 7 (6-14) Blood Urea Nitrogen 19 mg/dL (8-26) Creatinine 1.2 mg/dL (0.7-1.3) Estimated GFR (Cockcroft-Gault) 63.8 BUN/Creatinine Ratio 16 (6-20) Glucose Level 119 mg/dL (70-99) Calcium Level 9.2 mg/dL (8.5-10.1) Total Bilirubin 0.8 mg/dL (0.2-1.0) Aspartate Amino Transf (AST/SGOT) 16 U/L (15-37) Alanine Aminotransferase (ALT/SGPT) 14 U/L (16-63) Alkaline Phosphatase 69 U/L (46-116) Total Protein 7.2 g/dL (6.4-8.2) Albumin 3.4 g/dL (3.4-5.0) Albumin/Globulin Ratio 0.9 (1.0-1.7) Test 12/07/18 16:37 12/07/18 17:46 12/07/18 20:11 Glucose (Fingerstick) 57 mg/dL (70-99) 200 mg/dL (70-99) 266 mg/dL (70-99) Laboratory Tests Test 12/07/18 16:37 12/07/18 17:46 12/07/18 20:11 Glucose (Fingerstick) 57 mg/dL (70-99) 200 mg/dL (70-99) 266 mg/dL (70-99) Allergies Allergies Coded Allergies Type Severity Reaction Last Updated Verified No Known Drug Allergies 12/02/18 No Disposition/Orders: D/C to Another Facility KRISTAL VILLALBA MD Dec 08, 2018 15:18
== END 2018-12-07 22:30 | DRG 313 ==
LOC: ER 16:08 → 5 SOUTH 19:42 → 6 SOUTH 12-03 18:18
PROVIDERS: ADMIT Family Medicine; ATTEND Family Medicine
DX: R07.89 Other chest pain (principal); N17.9 Acute kidney failure, unspecified; Z68.42 Body mass index [BMI] 45.0-49.9, adult; R45.851 Suicidal ideations; E11.22 Type 2 diabetes mellitus with diabetic chronic kidney disease; E11.65 Type 2 diabetes mellitus with hyperglycemia; E66.01 Morbid (severe) obesity due to excess calories; E78.5 Hyperlipidemia, unspecified; F32.9 Major depressive disorder, single episode, unspecified; F41.9 Anxiety disorder, unspecified; H54.8 Legal blindness, as defined in USA; I12.9 Hypertensive chronic kidney disease with stage 1 through stage 4 chronic kidney disease, or unspecified chronic kidney disease; N18.9 Chronic kidney disease, unspecified; Z59.0 Homelessness; Z82.49 Family history of ischemic heart disease and other diseases of the circulatory system; Z83.3 Family history of diabetes mellitus; Z91.5 Personal history of self-harm; T59.892A Toxic effect of other specified gases, fumes and vapors, intentional self-harm, initial encounter
CPT/HCPCS: 36415; 71045; 78582; 80048; 80053; 80061; 80069; 80307; 81001; 82274; 82550; 82962; 83036; 83540; 83550; 83880; 84443; 84484; 85025; 85379; 85610; 86703; 93005; 93306; 94640; 96360; 96361; 96374; A9540; A9558; G0480; J1650; J1815; J2405; J7030; J7042; 99285-25; G0378